=== PATIENT | male | born 1955 | race Caucasian/White ===

== ENCOUNTER 2018-03-10 19:30 | Outpatient (CLI) | payer BC | END 2018-03-10 19:31 | disposition home or self-care (01) | LOC: SLEEPLAB 19:30 | PROVIDERS: ATTEND Internal Medicine | DX: G47.33 Obstructive sleep apnea (adult) (pediatric) (principal); R06.83 Snoring; E11.9 Type 2 diabetes mellitus without complications; Z68.36 Body mass index [BMI] 36.0-36.9, adult | CPT/HCPCS: 95811 ==

== ENCOUNTER 2018-07-06 12:02 | Observation (INO) | payer BC ==
[~2018-07-06 12:02] MED LIST: Ondansetron PF 4 MG/2 ML Vial ONE; PHENYLEPHRINE-NS 100 MCG/ML 10 ML SYRINGE ONE; PROPOFOL 200 MG/20 ML VIAL ONE; Succinylcholine Chloride 20 MG/ML 10 ml SYRINGE FS ONE
[2018-07-06 12:44] LABS: #Basophils 0.1 thou/uL (0.0-0.2); #Eosinphils 0.4 thou/uL (0.0-0.7); #Lymphocytes 0.9 thou/uL (1.20-3.40); #Monocytes 1.1 thou/uL (0.11-0.59); #Neutrophils 9.8 thou/uL (1.40-6.50); %Basophils 0.8 % (0.0-1.0); %Eosinophils 3.5 % (0.0-10.0); %Lymphocytes 7.3 % (21.0-51.0); %Monocytes 9.2 % (0.0-10.0); %Neutrophils 79.3 % (42.0-75.0); Mean Corpuscular HGB CONC 33.5 g/dL (32.0-36.0); Mean Corpuscular Volume 95.6 fL (78.0-98.0); Mean Platelet Volume 9.7 fL (7.4-10.4); Platelet Count 182 thou/uL (130-400); RBC Distribution Width 13.4 % (11.5-14.5); Red Blood Cell (RBC) Count 3.44 mill/uL (4.70-6.10); White Blood Cell (WBC) Count 12.3 thou/uL (4.8-10.8)
[2018-07-06] MEDS ORDERED: ISOVUE-370 76%-LOCM 1 ML ONE (13:18)
[2018-07-06 13:19] LABS: ALT (SGPT) 97 U/L (8-55); AST (SGOT) 84 U/L (5-34); Albumin 3.2 g/dL (3.5-5.0); Alkaline Phosphatase 72 U/L (40-150); Anion Gap 20 mmol/L (10-20); BUN (Urea Nitrogen) 23 mg/dL (8.4-25.7); Bilirubin, Total 1.6 mg/dL (0.2-1.2); Calc. Creatinine Clearance 0 mL/min (70-130); Carbon Dioxide 19 mmol/L (22-29); Chloride 104 mmol/L (98-107); Estimated GFR-MDRD 60; Glucose 220 mg/dL (70-105); Lipase 48 U/L (8-78); Potassium 4.2 mmol/L (3.5-5.1); Protein, Total 6.2 g/dL (6.0-8.3); Sodium 139 mmol/L (136-145)
[2018-07-06 13:41] LABS: CKMB 2.7 ng/mL (0-6.6); Troponin I Less than 0.010 ng/mL (< 0.028)
--- NOTE | 2018-07-06 13:43 | RAD ---
TWO VIEWS CHEST: Comparison: 04-14-12 History: Throwing up blood, chest pain. FINDINGS: Two views of the chest shows a cardiomediastinal silhouette which is upper limits of normal in size. The patient is status post sternotomy. There is no evidence of consolidation, mass, or pleural effusi on. Degenerative changes are seen in the spine. IMPRESSION: No evidence of acute cardiopulmonary disease. POS: [facility]
--- NOTE | 2018-07-06 14:00 | CT ---
CT OF THE BRAIN WITHOUT CONTRAST: Date: 07/06/18 COMPARISON: None. HISTORY: Hemoptysis that began this morning. Sinus infection. Nosebleed. TECHNIQUE: Multiple contiguous axial images were obtained in a CT of the brain without contrast. FINDINGS: The brain is normal in morphology and attenuation without focal lesions or confluent areas of infarct ion. There is no evidence of hydrocephalus, intracranial hemorrhage, or extra-axial fluid collection. The calvarium and overlying soft tissues are unremarkable. The visualized paranasal sinuses and masto id air cells are well aerated. IMPRESSION: No evidence of acute intracranial abnormality. POS: [facility]
--- NOTE | 2018-07-06 14:08 | CT ---
CT ABDOMEN AND PELVIS WITH IV CONTRAST: Date: 07/06/18 HISTORY: Abdominal pain, hemoptysis. FINDINGS: The lung bases are clear. The liver, spleen, pancreas, adrenal glands, and kidneys are normal. No nita cified gallstones are seen. No free air, free fluid, or lymphadenopathy seen in the abdomen or pelvis . The small bowel loops are not abnormally dilated. There is stranding of the fat in the right lower qu adrant. A normal appearing appendix is present. There is prominence of the wall of the right colon an d cecum. There are vascular calcifications without evidence of aneurysmal dilatation of the abdominal aorta. T here are degenerative changes in the spine. IMPRESSION: 1. No evidence of appendicitis. 2. Inflammatory changes in the right lower quadrant, may be due to colitis. POS: [facility]
[2018-07-06] MEDS ORDERED: Oxymetazoline HCl 0.05% ( 15 ML ) ONE (14:53)
[2018-07-06] MEDS ORDERED: Acetaminophen 325 MG TAB PO PRN (15:28)
[2018-07-06] MEDS ORDERED: Dextrose 50% Abboject 50 ML SYRINGE SLOW IVP PRN (15:32)
[2018-07-06] MEDS ORDERED: Lorazepam 2 MG/ML VIAL SLOW IVP PRN ×2 (15:32)
[2018-07-06] MEDS ORDERED: Dextrose 5% in Water 1,000 ML IV PRN (15:32)
[2018-07-06] MEDS ORDERED: Fentanyl 100 MCG/2 ML VIAL ONE (16:51)
[2018-07-06] MEDS ORDERED: Phenylephrine HCL 10 MG/ML VIAL ONE (18:34)
[2018-07-06] MEDS ORDERED: PHENYLEPHRINE-NS 100 MCG/ML 10 ML SYRINGE ONE (18:34)
[2018-07-06] MEDS ORDERED: Octreotide Acetate 1,250 MCG in Sodium Chloride 0.9% 250 ML 250 ML IVPB SCH (18:45)
[2018-07-06] MEDS ORDERED: Promethazine HCl 25 MG/ML VIAL SLOW IVP PRN (18:51)
[2018-07-06] MEDS ORDERED: Promethazine HCl 25 MG/ML VIAL IM PRN (18:51)
[2018-07-06] MEDS ORDERED: Ondansetron HCl/PF 4 MG/2 ML Vial IVP PRN (18:51)
--- NOTE | 2018-07-06 19:30 | CON ---
DATE OF CONSULTATION: HISTORY OF PRESENT ILLNESS: The patient is a 62-year-old male, who is in his normal state of health until today at work. He felt weak somewhat and nauseated and he threw up. As far as vomitus, he had some blood. He did this the second time and then decided to go home. When he got home, he had more vomiting and this included some clots. He has not had prior upper GI bleeds. He denies any abdominal pain. He denies any recent weight loss. He takes aspirin and Plavix for coronary artery disease, but denies any NSAID use. PAST MEDICAL HISTORY: Significant for diabetes mellitus, coronary artery disease. MEDICATIONS: Include: 1. Metformin. 2. Aspirin. 3. Plavix. 4. Coreg. ALLERGIES: NO KNOWN ALLERGIES. SOCIAL HISTORY: Does not smoke. He drinks approximately 3 to 4 drinks, 4 out of 7 nights. FAMILY HISTORY: Negative for GI or liver disease. REVIEW OF SYSTEMS: CONSTITUTIONAL: No fever or chills. No weight loss. EYES: No blurred vision or double vision. ENT: No sore throat or ear aches. CARDIOVASCULAR: No chest pain or palpitation. PULMONARY: No shortness of breath, cough, or wheeze. GI: See above. : No hematuria or dysuria. MUSCULOSKELETAL: No joint pain or muscle weakness. SKIN: No rashes. NEUROLOGIC: No numbness or seizure activity. PHYSICAL EXAMINATION: GENERAL: Shows overweight male, in no acute distress. VITAL SIGNS: Pulse is 80, blood pressure 125/76, heart rate 92, respiratory rate is 20, and temperature is 97.0. HEENT: Unremarkable. NECK: Supple. CHEST: Clear. CARDIOVASCULAR: Regular rate and rhythm. ABDOMEN: Soft, nontender without organomegaly or masses. His bowel sounds are present, normoactive. RECTAL: Deferred. EXTREMITIES: Normal. NEUROLOGIC: Nonfocal. LABORATORY DATA: Shows a white blood cell count of 12.3, hemoglobin 11.0, and hematocrit of 32.9. Chemistries show CO2 of 19, glucose 220, total bilirubin 1.6, AST of 84, ALT of 97, albumin of 3.2. IMAGING DATA: Abdominal and pelvic CT shows inflammatory changes in the right lower quadrant, may be due to colitis. Chest x-ray shows no acute cardiopulmonary disease. Brain CT showed no intracranial abnormality. ASSESSMENT: 1. Upper gastrointestinal bleed. 2. Coronary artery disease, on aspirin and Plavix. 3. Elevated transaminases with elevated total bilirubin - the patient may have some underlying liver disease, secondary to nonalcoholic steatohepatitis and/or alcohol. 4. Diabetes mellitus. RECOMMENDATIONS: 1. Emergent EGD. 2. PPI. 3. Serial H and H. 4. Hold aspirin and Plavix. Job ID: [id number]
[2018-07-06 19:48] LABS: Hemoglobin 10.6 g/dL (14.0-18.0)
[2018-07-06] MEDS: Dextrose 5 % And 0.9 % NaCl 1,000 ML IV SCH (21:52)
[2018-07-06] MEDS: Pantoprazole 80 MG in Sodium Chloride 0.9% 100 ML IVP SCH (21:53)
--- NOTE | 2018-07-06 23:40 | HP ---
CHIEF COMPLAINT: Hematemesis. HISTORY OF PRESENT ILLNESS: The patient is a 62-year-old male with a past medical history of hypertension and diabetes, who presented to the hospital with complaints of hematemesis x1 day. The patient stated that last night he had about 5 drinks with his friends, which consisted of liquor and this morning when he woke up, he took all his medications, went to work, had 2 bouts of emesis at work. The patient then started feeling unwell and his coworker advised him to go home and get some rest. When the patient got home, the patient had another bout of hematemesis. At this time, the brought him to the hospital for further evaluation. The patient stated that his emesis appeared to be dark, clotty appearing. The patient denies taking any ibuprofen or any other NSAIDs besides the aspirin that is prescribed. The patient normally, in the morning before eating anything, takes all his medications, then gets to work, eats a granola bar and so on and so forth. However, today he did not even eat the granola bar since he did not feel well. The patient currently denies any dizziness or abdominal pain or any diarrhea. However, the patient states sometimes he does get diarrhea at times. Last colonoscopy and EGD were few years ago. EGD was done for possible hiatal hernia. The patient initially stated that he had hemoptysis at this time. There was a concern given his frequent signs of infection since he was put on recent medication by his ENT physician. The patient was evaluated by ENT Dr. Martines in the ER. There were no signs of postnasal epistaxis that would be the source of the patient's bleeding. PAST MEDICAL HISTORY: Hypertension, coronary artery disease, diabetes, and hypothyroidism. PAST SURGICAL HISTORY: He has had a bypass x4. SOCIAL HISTORY: The patient smokes cigar once a day. He drinks about 3 glasses of liquor, which is vodka and other hot liquor. The patient denies any recreational drug use. Just uses marijuana oil for his back pain. REVIEW OF SYSTEMS: All negative except for the ones mentioned above in the HPI. ALLERGIES: NO KNOWN DRUG ALLERGIES. MEDICATIONS: 1. The patient takes Synthroid, unknown dose. 2. The patient takes Victoza, unknown dose. 3. The patient takes metformin, unknown dose. 4. The patient takes aspirin 81 mg daily. 5. Benicar, unknown dose. The patient's is going to bring the list from home. FAMILY HISTORY: Denies any history of heart disease or cancer or any diabetes. PHYSICAL EXAMINATION: VITAL SIGNS: The patient's temperature is 98.8, blood pressure is 110/60, heart rate is 97, and he is 95% on room air. GENERAL: He is awake, alert, and oriented x3. Does not appear in any distress. CV: S1 and S2 present. No murmurs, rubs, or gallops. ABDOMEN: Soft. Bowel sounds are present x2. Mild pain on his right upper quadrant on palpation. No pain on his right or left lower quadrant area. LUNGS: Clear to auscultation. No rhonchi or wheezes noted. EXTREMITIES: No edema. Pedal pulses are present x2. NEUROVASCULAR: No focal deficits noted. HEENT: Normocephalic and atraumatic. Blood was noted in the back of his throat. SKIN: No cuts or lesions noted. LABORATORY DATA: Laboratory results are as of the following; WBCs of 12.3, hemoglobin of , hematocrit of 32.9, and his platelets are 182. BMP; sodium of 139, potassium of 4.2, BUN of 22, creatinine of 1.23. His AST was 84, ALT of 97, his total bilirubin was 1.6, glucose was 220. Troponin x1 was negative. Lipase was 48. He did have a CT abdomen and pelvis and a CT head. CT head was negative. CT abdomen and pelvis indicated mild right lower quadrant inflammatory changes consistent with colitis. No evidence of appendicitis. ASSESSMENT AND PLAN: The patient is a very pleasant 62-year-old man, who comes to the hospital for hematemesis. 1. Hematemesis. This could be most likely from a GI source, possibly either gastritis or ulcer versus possible varices. The patient does take medications on empty stomach daily. He also has been drinking. The patient does have a history of fatty liver according to him and continues to drink alcohol. We will put the patient n.p.o. right now with maybe some ice chips. Start some D5 normal saline at 100 mL an hour. Consult GI, also put him on a Protonix drip for now, and the patient does not take any NSAIDs, which could be causing the patient to have some bleeding. We will type and screen him. The patient's however, he had significant blood clots, which he did have a picture of while I was interviewing him in the room. 2. Elevated LFTs and bilirubin. May consider getting a right upper quadrant ultrasound. The patient does have a diagnosis of hepatic steatosis and continues to drink. I have advised him again alcohol use. We will continue to monitor. 3. Alcohol use. We will put the patient on FER protocol and also add some p.r.n. Ativan if needed. The patient has never had any withdrawals from alcohol. 4. Diabetes. We will check Accu-Cheks before meals and at bedtime. Also, we will put the patient on sliding scale and hold all his home medications for now. 5. Deep venous thrombosis prophylaxis. We will put the patient on the SCDs given his risk of bleeding and we will continue to monitor. Job ID: [id number]
[2018-07-07 00:39] VITALS: BMI 32.8
[2018-07-07 00:47] LABS: Hemoglobin 9.9 g/dL (14.0-18.0)
[2018-07-07] MEDS: Carvedilol 6.25 MG TAB PO SCH ×2 (06:26→20:44)
[2018-07-07] MEDS: Pantoprazole 80 MG in Sodium Chloride 0.9% 100 ML IVP SCH (06:26)
[2018-07-07 07:36] LABS: Hemoglobin 9.2 g/dL (14.0-18.0)
[2018-07-07] MEDS: Dextrose 5 % And 0.9 % NaCl 1,000 ML IV SCH ×2 (07:36→11:43)
[2018-07-07] MEDS ORDERED: hydrALAZINE 20 MG/ML VIAL SLOW IVP PRN (07:56)
[2018-07-07 07:58] LABS: Anion Gap 9 mmol/L (10-20); BUN (Urea Nitrogen) 31 mg/dL (8.4-25.7); Calc. Creatinine Clearance 108 mL/min (70-130); Carbon Dioxide 29 mmol/L (22-29); Chloride 106 mmol/L (98-107); Estimated GFR-MDRD 70; Glucose 240 mg/dL (70-105); Potassium 3.6 mmol/L (3.5-5.1); Sodium 140 mmol/L (136-145)
[2018-07-07 08:20] LABS: HBCM Index 0.08 S/CO (0-0.79); HBSAg Index 0.27 S/CO (0-0.99); Hep A IgM AB Non-Reactive (NonReactive); Hep A IgM S/CO 0.11 S/CO (0-0.79); Hep B Surf Ag Non-Reactive S/CO (NonReactive); Hep C IgG Ab Non-Reactive (NonReactive); Hep C Index 0.05 S/CO (0-0.79); Hepatitis B Core IgM Abs Non-Reactive (NonReactive)
--- NOTE | 2018-07-07 08:38 | OP ---
DATE OF PROCEDURE: 07/06/2018 PREOPERATIVE DIAGNOSIS: Upper gastrointestinal bleed. DESCRIPTION OF PROCEDURE: After informed consent was obtained, the patient was placed in the left lateral decubitus position. Anesthesia was administered by the Anesthesia Department. Forward-viewing endoscope was inserted into esophagus under direct visualization with ease and passed to the second portion of the duodenum with ease. Second portion of the duodenum and duodenal bulb were normal. No active bleeding sites were noted. The pylorus was normal. The antrum, body, fundus, and cardia was normal; however, this was obscured by a large amount of adherent of blood, but also by a large amount of clot in the stomach. This clot was eventually aspirated completely clear; however, the old adherent blood along the most of the gastric mucosa was not washed free and therefore complete visualization was not achieved. No active bleeding sites were noted. No bright red bleeding was noted. The patient had minimal grade 1 or less varices that had not red darryl signs or stigmata of recent hemorrhage. No gastric varices were appreciated. No portal hypertensive gastropathy was noted. No biopsies were obtained. ASSESSMENT: 1. Large amount of adherent blood and clot in the stomach precluding full visualization. 2. Grade 1 or less esophageal varices. RECOMMENDATIONS: 1. Relook in a.m. 2. Begin octreotide. 3. PPI. 4. Serial H and H. 5. Right upper quadrant ultrasound. 6. Hepatitis panel. 7. Alpha-fetoprotein. Job ID: [id number]
--- NOTE | 2018-07-07 08:49 | ULT ---
ABDOMINAL ULTRASOUND COMPLETE: Date: 07/07/18 HISTORY: 62-year-old male with history of abnormal liver function tests. Hematemesis. Weakness. COMPARISON: 07/06/18 CT. FINDINGS: Coarse liver echogenicity, evidence for fatty infiltration. No evidence for gallstones. Gallbladder w all 0.3 cm without evidence for pericholecystic fluid or abnormal wall thickening. Liver is enlarged. Common bile duct 0.4 cm. Pancreas mostly obscured. Visualized IVC and aorta unremarkable. Minimal sp lenomegaly. No renal hydronephrosis. No abnormal fluid collection. IMPRESSION: Minimal hepatosplenomegaly with some fatty changes in the liver. No ductal dilatation. No evidence fo r overt gallstones. POS: [facility]
[2018-07-07] MEDS ORDERED: PROPOFOL 200 MG/20 ML VIAL ONE (11:18)
[2018-07-07] MEDS: Insulin Glargine 5 UNITS in Pre-Filled Syringe 1 EACH SC SCH (12:19)
[2018-07-07 13:01] LABS: Hemoglobin 9.3 g/dL (14.0-18.0)
--- NOTE | 2018-07-07 15:47 | PDOC.PN ---
- Subjective Encounter Start Date: 07/07/18 Encounter Start Time: 09:00 Subjective: pt up in bed no complains - Objective Resuscitation Status - Order Detail: 07/06/18 15:28 Resuscitation Status Routine Resuscitation Status: FULL: Full Resuscitation Vital Signs & Weight: Vital Signs (12 hours) Temp Pulse Resp BP BP Pulse Ox 07/07/18 13:03 158/80 H 07/07/18 11:57 98 F 78 16 158/80 H 97 07/07/18 08:15 132/74 07/07/18 07:46 98.6 F 77 16 123/89 94 L 07/07/18 06:26 160/75 H 07/07/18 06:00 98.1 F 87 18 160/75 H 95 Weight Weight 229 lb 1 oz I&O: 07/06/18 07/07/18 07/08/18 06:59 06:59 06:59 Intake Total 480 Output Total 1300 Balance -820 Result Diagrams: 07/07/18 12:44 07/07/18 07:15 Additional Labs: Accuchecks 07/07/18 07/07/18 07/06/18 12:01 06:32 22:41 POC Glucose 192 H 271 H 237 H Phys Exam - Physical Examination Neck: no nodes, no JVD, supple, full ROM Respiratory: no wheezing, no rales, no rhonchi, wheezing present, clear to auscultation bilateral Cardiovascular: RRR, no significant murmur, no rub, gallop, irregular Gastrointestinal: soft, non-tender, no distention, positive bowel sounds Dx/Plan (1) Hematemesis Code(s): K92.0 - HEMATEMESIS Status: Acute (2) Alcohol abuse Code(s): F10.10 - ALCOHOL ABUSE, UNCOMPLICATED Status: Acute (3) HTN (hypertension) Code(s): I10 - ESSENTIAL (PRIMARY) HYPERTENSION Status: Acute - Plan will continue protonix drip and octreotide drip -: continue to monitor for alcohol withdrawal -: pt going for egd again this am, hh stable -: will restart bp meds since his bp is elevated * . Review of Systems - Review of Systems Respiratory: negative: Cough, Dry, Shortness of Breath, Hemoptysis, SOB with Excertion, Pleuritic Pain, Sputum, Wheezing Cardiovascular: negative: chest pain, palpitations, orthopnea, paroxysmal nocturnal dyspnea, edema, light headedness, other Gastrointestinal: negative: Nausea, Vomiting, Abdominal Pain, Diarrhea, Constipation, Melena, Hematochezia, Other - Medications/Allergies Allergies/Adverse Reactions: Allergies Allergy/AdvReac Type Severity Reaction Status Date / Time No Known Drug Allergies Allergy Verified 07/06/18 17:23 Medications: Current Medications Acetaminophen (Tylenol) 650 mg PO Q4H PRN PRN Reason: Headache/Fever/Mild Pain (1-3) Carvedilol (Coreg) 6.25 mg PO BID [facility] Last Admin: 07/07/18 06:26 Dose: 6.25 mg Dextrose/Water (Dextrose 50%) 25 gm SLOW IVP PRN PRN PRN Reason: Hypoglycemia Glucagon (Glucagon) 1 mg IM PRN PRN PRN Reason: Hypoglycemia Hydralazine HCl (Apresoline) 10 mg SLOW IVP Q4H PRN PRN Reason: Blood Pressure Dextrose/Sodium Chloride (D5 0.9% Ns) 1,000 mls @ 100 mls/hr IV .Q10H [facility] Last Admin: 07/07/18 07:36 Dose: 1,000 mls Dextrose/Water (D5w) 1,000 mls @ 0 mls/hr IV .Q0M PRN PRN Reason: Hypoglycemia Octreotide Acetate 1,250 mcg/ (Sodium Chloride) 251.25 mls @ 10.05 mls/hr IVPB INF [facility] Last Admin: 07/06/18 21:52 Dose: 251.25 mls Insulin Glargine 5 units/ (Miscellaneous Medication) 0.05 mls @ 0 mls/hr SC QAM [facility] Last Admin: 07/07/18 12:19 Dose: 0.05 mls Insulin Glargine 5 units/ (Miscellaneous Medication) 0.05 mls @ 0 mls/hr SC HS [facility] Insulin Human Lispro (Humalog) 0 units SC .MILD SLIDING SCALE PRN PRN Reason: Mild Correctional Scale Levothyroxine Sodium (Synthroid) 50 mcg PO 0600 [facility] Lorazepam (Ativan) 1 mg SLOW IVP Q6H PRN PRN Reason: Anxiety/Agitation Lorazepam (Ativan) 0.5 mg SLOW IVP Q4H PRN PRN Reason: Anxiety/Agitation Pantoprazole Sodium (Protonix) 40 mg PO DAILY [facility] Sodium Chloride (Flush - Normal Saline) 10 ml IVF Q12HR [facility] Last Admin: 07/07/18 12:45 Dose: Not Given Sodium Chloride (Flush - Normal Saline) 10 ml IVF PRN PRN PRN Reason: Saline Flush
[2018-07-07 18:11] LABS: Hemoglobin 9.7 g/dL (14.0-18.0)
[2018-07-07] MEDS: HumaLOG 300 UNITS/3 ML VIAL SC PRN (18:21)
[2018-07-07] MEDS ORDERED: Insulin Glargine 5 UNITS in Pre-Filled Syringe 1 EACH SC SCH (21:00)
[2018-07-08] MEDS ORDERED: Levothyroxine Sodium 50 MCG TAB PO SCH (06:00)
[2018-07-08] MEDS: Carvedilol 6.25 MG TAB PO SCH (09:23)
[2018-07-08] MEDS: Insulin Glargine 5 UNITS in Pre-Filled Syringe 1 EACH SC SCH (09:24)
[2018-07-08] MEDS: HumaLOG 300 UNITS/3 ML VIAL SC PRN (10:54)
[2018-07-08] MEDS ORDERED: Polyethylene Glycol 3350 17 GM Packet PO SCH (11:15)
[2018-07-08 12:10] VITALS: TEMP 97.7
[2018-07-08 14:57] VITALS: BP 157/78
--- NOTE | 2018-07-08 19:54 | EKG ---
Test Reason : HEMATEMESIS Blood Pressure : / mmHG Vent. Rate : 080 BPM Atrial Rate : 080 BPM P-R Int : 138 ms QRS Dur : 094 ms QT Int : 420 ms P-R-T Axes : 005 -38 -64 degrees QTc Int : 484 ms Normal sinus rhythm Left axis deviation Moderate voltage criteria for LVH, may be normal variant Prolonged QT Abnormal ECG Confirmed by GREGORY BROWER DO ([id number]), multimedia editor AMBER CABALLERO ([id number] on 07/08/2018 7:53:45 PM Referred By: SUMAN Confirmed By:GREGORY BROWER DO
--- NOTE | 2018-07-10 07:49 | DIS ---
DATE OF ADMISSION: 07/06/2018 DATE OF DISCHARGE: 07/08/2018 BIOINFORMATICS ENGINEER: Dr. Edouard Jacobs, Gastrointestinal Service. PROCEDURE: Upper gastrointestinal scoping. FINAL DIAGNOSES: 1. Upper gastrointestinal bleeding. 2. Grade 1 or less esophageal varices. 3. Portal hypertensive gastropathy. 4. Alcohol abuse. 5. Hypertension. HOSPITAL COURSE: The patient is a 62-year-old male with past medical history of hypertension and diabetes mellitus, who presented to the hospital with complaints of hematemesis x1 day. He stated that the night prior to this hospitalization, he had 5 drinks with his friends. Next morning, he woke up with 2 bouts of emesis. After his work, he had additional bout of hematemesis and at this time, the EMS was called and he was brought to the emergency room for further evaluation. He denied any NSAIDs use recently besides aspirin, which is prescribed by his PCP, Dr. Pate. He had some dizziness and abdominal discomfort. He was evaluated by ENT, Dr. Martines in the emergency room. There were no signs of post-nasal epistaxis or any other source of bleeding in the nasal area. He was evaluated high in the emergency room, his white count was 12.3, hemoglobin 11.0, hematocrit 32.9. His kidney function was within normal limits. Glucose was 220, total bilirubin was 1.6, AST 84, ALT 97, alkaline phosphatase 72. Next hemoglobin level was 10.6. The patient got admitted to the hospital, he was put on D5 normal saline at 100 mL/hour. GI consult was requested. Also, he was started on Protonix drip. His aspirin and Plavix were put on hold. The patient underwent upper GI scoping by Dr. Jacobs, who found a large amount of apparent blood and clot in the stomach and grade 1 or less esophageal varices. Because of above-mentioned problem, he was re-scoped the next day with better visualization of the anatomy. There was no any obvious source of bleeding. There was portal hypertensive gastropathy and grade 1 varices with stigmata of bleeding. The patient was on octreotide, which was weaned off. Clinically, he is doing well. His vital signs are blood pressure is 174/94. He was started on his ARB just now and his current blood pressure is down to 157/78, temperature is 97.7, pulse is 68, respiratory rate is 18, and O2 saturation is 94% on room air. He was seen, examined, and evaluated before he was discharged home. ACTIVITIES: As tolerated. DIET: Low salt, heart-healthy diet. DISCHARGE MEDICATIONS: Medications at the time of discharge; 1. Olmesartan which is Benicar 40 mg once a day. 2. Levothyroxine 50 mcg every morning. 3. Carvedilol 6.25 mg twice a day. 4. Victoza subcutaneous daily. 5. Metformin 1000 mg twice a day. 6. Pravastatin 80 mg q.h.s. 7. His Plavix and aspirin were stopped. DISCHARGE INSTRUCTIONS: The plan is to restart both of them approximately one week from the time of discharge when he is going to see his primary care physician, Dr. Pate in his office. He will continue his diabetic care with Accu-Cheks as before and regimen has not been changed. He is going to follow up with Dr. Mueller, his network support in 2 weeks. TIME SPENT: Time spent on this discharge is less than 30 minutes. Job ID: [id number]
--- NOTE | 2018-07-10 09:07 | OP ---
DATE OF PROCEDURE: 07/07/2018 PREOPERATIVE DIAGNOSIS: Upper GI bleed with incomplete visualization. DESCRIPTION OF PROCEDURE: After informed consent was obtained, the patient was placed in the left lateral decubitus position. Anesthesia was administered by the anesthesia department. Forward-viewing endoscope was inserted into esophagus under direct visualization with ease and passed to the second portion of the duodenum with ease. Second portion of the duodenum and duodenal bulb were normal. There was no blood in the upper GI tract. Pylorus, antrum, body, fundus, and cardia were normal, except for changes consistent with portal hypertensive gastropathy. Retroflexion in the stomach showed no gastric varices. The esophagus showed grade 1 esophageal varices without stigmata of recent hemorrhage. ASSESSMENT: 1. Portal hypertensive gastropathy. 2. Grade 1 esophageal varices without stigmata of bleeding. RECOMMENDATIONS: 1. Begin low-dose nadolol. 2. Wean off octreotide. 3. Resume diet. 4. Abstinence from alcohol. 5. If the patient is doing well tomorrow, he would be stable for discharge from GI standpoint. Job ID: [id number]
== END 2018-07-08 16:08 | disposition home or self-care (01) ==
LOC: ERS 12:02 → ERHOLD 15:37 → 2SW 19:35
PROVIDERS: ADMIT Internal Medicine; ATTEND Internal Medicine
PROC: 0DJ08ZZ Inspection of Upper Intestinal Tract, Via Natural or Artificial Opening Endoscopic (ICD-10-PCS; principal; 2018-07-06)
PROC: 0DJ08ZZ Inspection of Upper Intestinal Tract, Via Natural or Artificial Opening Endoscopic (ICD-10-PCS; 2018-07-07)
DX: K76.6 Portal hypertension (principal); K31.89 Other diseases of stomach and duodenum; I85.10 Secondary esophageal varices without bleeding; F10.10 Alcohol abuse, uncomplicated; K92.0 Hematemesis; E11.9 Type 2 diabetes mellitus without complications; I10 Essential (primary) hypertension; I25.10 Atherosclerotic heart disease of native coronary artery without angina pectoris; E03.9 Hypothyroidism, unspecified; F17.290 Nicotine dependence, other tobacco product, uncomplicated; R79.89 Other specified abnormal findings of blood chemistry; Z79.82 Long term (current) use of aspirin; Z79.84 Long term (current) use of oral hypoglycemic drugs; Z79.899 Other long term (current) drug therapy; Z79.02 Long term (current) use of antithrombotics/antiplatelets; Z95.1 Presence of aortocoronary bypass graft
CPT/HCPCS: 36415; 36416; 70450; 71046; 74177; 76700; 80048; 80053; 80074; 82105; 82550; 82553; 83690; 84484; 85014; 85018; 85025; 86850; 86900; 86901; 93005; 96365; 96366; 96368; 96374; 96375; C9113; G0378; J2354; J2370; J2405; J2704; J3010; J7050

== ENCOUNTER 2018-08-13 23:58 | Inpatient (IN) | payer BC ==
[2018-08-14 00:35] LABS: INR-International Normal Ratio 1.4; PTT 33.4 SEC (22.9-36.1); Prothrombin Time 17.6 SEC (12.0-14.7)
[2018-08-14 00:37] LABS: Hemoglobin 5.3 g/dL (14.0-18.0)
[2018-08-14 00:49] LABS: ALT (SGPT) 37 U/L (8-55); AST (SGOT) 48 U/L (5-34); Albumin 2.9 g/dL (3.5-5.0); Alkaline Phosphatase 56 U/L (40-150); Anion Gap 20 mmol/L (10-20); BUN (Urea Nitrogen) 47 mg/dL (8.4-25.7); Bilirubin, Total 0.6 mg/dL (0.2-1.2); Calc. Creatinine Clearance 0 mL/min (70-130); Calcium 8.5 mg/dL (7.8-10.44); Carbon Dioxide 14 mmol/L (22-29); Chloride 100 mmol/L (98-107); Estimated GFR-MDRD 71; Globulin 2.9 g/dL (2.4-3.5); Glucose 151 mg/dL (70-105); Potassium 4.1 mmol/L (3.5-5.1); Protein, Total 5.8 g/dL (6.0-8.3); Sodium 130 mmol/L (136-145)
[2018-08-14 00:54] LABS: Anisocytosis SLIGHT = 6-15 cells (100X) (0-5/hpf); Band 11 % (5-11); Lymphocytes 15 % (21-51); MDiff Complete? YES; Mean Corpuscular HGB CONC 32.6 g/dL (32.0-36.0); Mean Corpuscular Hemoglobin 27.3 pg (27.0-31.0); Mean Corpuscular Volume 83.6 fL (78.0-98.0); Mean Platelet Volume 9.8 fL (7.4-10.4); Monocytes 5 % (0-10); Neutrophil 69 % (42-75); PLT Morphology Comment Appears Adequate; Platelet Count 201 thou/uL (130-400); RBC Distribution Width 18.7 % (11.5-14.5); Red Blood Cell (RBC) Count 1.94 mill/uL (4.70-6.10); White Blood Cell (WBC) Count 12.8 thou/uL (4.8-10.8)
[2018-08-14] MEDS ORDERED: Sodium Chloride 0.9% 100 ML ONE (01:33)
[2018-08-14] MEDS ORDERED: Pantoprazole 40 MG VIAL ONE (01:33)
[2018-08-14] MEDS ORDERED: cefTRIAXone\\ROCEPHIN 1 GM VIAL ONE (01:33)
[2018-08-14] MEDS ORDERED: Tranexamic Acid 1,000 MG/10 ML VIAL ONE (01:33)
[2018-08-14] MEDS ORDERED: Octreotide Acetate 50 MCG/ML AMP ONE (01:33)
[2018-08-14] MEDS ORDERED: Octreotide Acetate 1,250 MCG in Sodium Chloride 0.9% 250 ML 250 ML IVPB SCH (01:45)
[2018-08-14] MEDS ORDERED: Ondansetron PF 4 MG/2 ML Vial IVP PRN (02:26)
[2018-08-14] MEDS ORDERED: Ondansetron ODT 4 MG TAB PO PRN (02:26)
[2018-08-14] MEDS ORDERED: HumaLOG 300 UNITS/3 ML VIAL SC PRN (02:26)
[2018-08-14] MEDS ORDERED: hydrALAZINE 20 MG/ML VIAL SLOW IVP PRN (02:26)
[2018-08-14] MEDS ORDERED: Acetaminophen 500 MG TAB PO PRN (02:26)
[2018-08-14] MEDS ORDERED: Dextrose 50% Abboject 50 ML SYRINGE SLOW IVP PRN (02:26)
[2018-08-14] MEDS ORDERED: Dextrose 5% in Water 1,000 ML IV PRN (02:26)
[2018-08-14] MEDS ORDERED: Pantoprazole 40 MG VIAL IVP SCH (02:30)
--- NOTE | 2018-08-14 04:53 | HP ---
PRIMARY CARE PROVIDER: Balbir Pate MD. CHIEF COMPLAINT: General weakness and blood in the stool. HISTORY OF PRESENT ILLNESS: This is a 62-year-old male who presents to [facility] Emergency Department complaining of 3-4-day history of blood in the stool as well as associated generalized weakness and persistent cough. The patient admits to increased sleep at home with decreased energy level and activities. His corroborates this story and states he has not been acting like himself over the last several days. The patient was recently admitted to [facility] 07/06 through 07/08/2018 after sustaining an upper GI bleed, discovered with esophageal varices and portal hypertensive gastropathy. The patient had previously been treated with outpatient prescriptions with Plavix and aspirin at which point the patient was taken off Plavix and continued on aspirin after discharge home. The patient states he was also placed on oral prednisone and was given intramuscular Solu-Medrol after complaints of bronchitis and persistent cough. The patient states these prescriptions were given after he was discharged from the hospital 07/08/2018. The patient noted decreased appetite, however, due to multiple cold and allergy medications, he did not have a bowel movement, until approximately 4-5 days prior to this evaluation noting black stools. The patient states the black stools persisted and the patient's noted that he looked pale and with sunken eyes. The patient denied any nausea, vomiting, or hematemesis. The patient denied any increased abdominal pain or dysuria. The patient denied any fever, trauma, or exposure history. In the emergency room, the patient underwent general evaluation including CBC assessment showing a hemoglobin of 5.3, previously noted 9.7 on 07/07/2018. The patient was typed and crossed and received 2 units of packed red blood cells in the emergency room in addition to octreotide and intravenous normal saline. PAST MEDICAL HISTORY: 1. Status post GI bleed secondary to esophageal varices and portal hypertensive gastropathy. 2. History of alcohol abuse, none since 06/2018. 3. Hypertension. 4. Chronic aspirin. 5. Hypothyroidism. 6. Diabetes mellitus type 2. 7. Seasonal allergies. 8. Coronary artery disease. PAST SURGICAL HISTORY: 1. Status post coronary artery bypass grafting x4 vessels. 2. Status post EGD showing grade 1 esophageal varices and portal hypertensive gastropathy. CURRENT MEDICATIONS: 1. Carvedilol 6.25 mg p.o. b.i.d. 2. Levothyroxine 50 mcg p.o. daily. 3. Victoza 1.8 subcutaneously daily. 4. Metformin 1000 mg p.o. b.i.d. 5. Olmesartan 40 mg p.o. daily. 6. Pravachol 80 mg p.o. at bedtime. 7. Enteric-coated aspirin 81 mg p.o. daily. ALLERGIES: NO KNOWN DRUG ALLERGIES. FAMILY HISTORY: No inheritable diseases per patient report. SOCIAL HISTORY: The patient is accompanied by his in the hospital. Smokes a cigar once a day. Previously used alcohol including vodka, none currently over the last 5 weeks. Uses marijuana oil for back pain. REVIEW OF SYSTEMS: CONSTITUTIONAL: Negative for weight loss or gain, ability to conduct usual activities. SKIN: Negative for rash, itching. EYES: Negative for double vision, pain. ENT/MOUTH: Negative for nose bleeding, neck stiffness, pain, tenderness. CARDIOVASCULAR: Negative for palpitations, dyspnea on exertion, orthopnea. RESPIRATORY: Negative for shortness of breath, wheezing, cough, hemoptysis, fever or night sweats. GASTROINTESTINAL: Negative for poor appetite, abdominal pain, heartburn, nausea, vomiting, constipation, or diarrhea. GENITOURINARY: Negative for urgency, frequency, dysuria, nocturia. MUSCULOSKELETAL: Negative for pain, swelling. NEUROLOGIC/PSYCHIATRIC: Negative for anxiety, depression. ALLERGY/IMMUNOLOGIC: Negative for skin rash, bleeding tendency. Otherwise, negative except as stated per HPI. PHYSICAL EXAMINATION: VITAL SIGNS: On admission, blood pressure 108/64, pulse 86, respiratory rate 18, temperature 99.3 degrees Fahrenheit, and O2 saturation 95% on room air. GENERAL APPEARANCE: This is a 62-year-old male, alert and oriented x3, pleasant, responsive, pale appearing, in mild distress. HEENT: Pupils are equal, round, reactive to light and accommodation. Extraocular muscles are intact. No scleral icterus. Pale conjunctivae bilaterally. Nares patent. OP is clear. Oral mucosa dry appearing. NECK: Supple. No cervical adenopathy. No thyromegaly. No carotid bruits. No JVD appreciated. Cervical spine with full active and passive range of motion. No meningeal signs noted. CHEST: Lungs are clear to auscultation bilaterally. CARDIOVASCULAR: S1, S2 without noted murmur, rub, or gallop. ABDOMEN: Obese, soft, nontender, and nondistended. Bowel sounds are positive in all four quadrants. There is no palpable mass. Landmarks are difficult to palpate due to patient's body habitus. EXTREMITIES: Warm and dry with fair turgor. Mild pitting edema to the mid shins bilaterally. Pulses are palpable distally at the dorsalis pedis, posterior tibial, and popliteal arteries bilaterally. Capillary refill less than 2 seconds. NEUROLOGIC: Cranial nerves 2 through 12 are grossly intact. No focal or lateralizing signs are appreciated. PERTINENT LAB AND X-RAY FINDINGS: Sodium 130, potassium 4.1, chloride 100, CO2 of 14, BUN 47, creatinine 1.06, estimated GFR 71, glucose 151, calcium 8.5. AST 48, ALT of 37, total bilirubin 0.6, albumin 2.9. CBC showed a white blood cell count of 12.8, hemoglobin 5.3, hematocrit 16.2, platelet count 201 with 69% neutrophils. PT 17.6, INR 1.4, PTT 33.4. EKG dated 08/13/2018 by my interpretation shows sinus mechanism with heart rates in the 70s. Normal R-wave progression noted in the precordial leads. No acute ST-T wave changes appreciated. ASSESSMENT/PLAN: 1. Acute gastrointestinal bleed. Suspect upper gastrointestinal source. History of esophageal varices and portal hypertensive gastropathy. We will continue octreotide infusion. Continue Protonix 40 mg IV q.12 hours. Consult GI Service in the a.m. for repeat endoscopy. Suspect the patient's presentation is due to recent exposure to prednisone and continuation of daily aspirin. 2. Acute blood loss anemia secondary to acute gastrointestinal bleed. See acute gastrointestinal bleed above for management options. 3. Status post 2 units of packed red blood cells. We will continue serial H and H monitoring and repeat CBC in the a.m. Avoid anticoagulation and NSAIDs. 4. Hypotension. Suspect secondary to hypovolemia. We will continue intravenous normal saline and transfuse 2 units of packed red blood cells. Hold all antihypertensive medications. 5. Hyponatremia. Suspect secondary to decreased oral intake. We will continue serial sodium monitoring. 6. Diabetes mellitus type 2. Insulin sliding scale for reflexive coverage. ADA diet when taking oral intake. Serial Accu-cheks before meals and at bedtime. 7. Prophylaxis. SCDs while in bed. Protonix 40 mg IV q.12 hours. 8. Code status is full. Surrogate medical decision maker is the patient's spouse. Job ID: [id number]
[2018-08-14 08:35] LABS: ALT (SGPT) 37 U/L (8-55); AST (SGOT) 49 U/L (5-34); Albumin 2.9 g/dL (3.5-5.0); Alkaline Phosphatase 54 U/L (40-150); Anion Gap 15 mmol/L (10-20); BUN (Urea Nitrogen) 46 mg/dL (8.4-25.7); Bilirubin, Total 0.8 mg/dL (0.2-1.2); Calc. Creatinine Clearance 0 mL/min (70-130); Calcium 8.4 mg/dL (7.8-10.44); Carbon Dioxide 18 mmol/L (22-29); Chloride 102 mmol/L (98-107); Estimated GFR-MDRD 69; Glucose 173 mg/dL (70-105); Potassium 4.2 mmol/L (3.5-5.1); Protein, Total 5.9 g/dL (6.0-8.3); Sodium 131 mmol/L (136-145)
[2018-08-14 09:19] LABS: Hemoglobin 6.5 g/dL (14.0-18.0); Mean Corpuscular HGB CONC 32.7 g/dL (32.0-36.0); Mean Corpuscular Hemoglobin 27.4 pg (27.0-31.0); Mean Corpuscular Volume 83.8 fL (78.0-98.0); Mean Platelet Volume 10.3 fL (7.4-10.4); Platelet Count 183 thou/uL (130-400); RBC Distribution Width 17.1 % (11.5-14.5); Red Blood Cell (RBC) Count 2.38 mill/uL (4.70-6.10); White Blood Cell (WBC) Count 11.5 thou/uL (4.8-10.8)
--- NOTE | 2018-08-14 09:21 | CON ---
DATE OF CONSULTATION: 08/14/2018 GASTROENTEROLOGY CONSULTATION CHIEF COMPLAINT: Blood in the stool. HISTORY OF PRESENT ILLNESS: Mr. Hernandez is a 62-year-old man, who was just admitted to the hospital at the end of June with hematemesis. He underwent upper endoscopy at that time that showed grade 1 varices and portal hypertensive gastropathy, but no focal bleeding source at the time. He was on Plavix and aspirin at that time and was discharged on aspirin alone. At that time, he had been drinking 3 to 4 drinks a few nights per week. Since then, he has stopped all alcohol use. After that, he developed cough and bronchitis and was treated with steroids. On Tuesday of this past week, he started passing black stools. He had a black stool every day on Tuesday, , Tuesday, Tuesday, and yesterday. He became extremely weak, pale, and fatigued, so he came to the emergency room for further care. He has had no nausea or vomiting. No diarrhea or constipation otherwise. No abdominal pain associated with this. No fever, chest pain, or shortness of breath. He still undergoing evaluation for his cough and antibiotics for that. PAST MEDICAL HISTORY: Coronary artery disease, diabetes mellitus type , hypothyroidism, hypertension, apparent cirrhosis of the liver with prior alcohol abuse, upper GI bleed end of June 2018 with varices and portal hypertensive gastropathy diagnosed at that time. PAST SURGICAL HISTORY: Coronary artery bypass graft. He had colonoscopy in 2010, which was negative except for diverticulosis. FAMILY HISTORY: Negative for GI malignancy. SOCIAL HISTORY: He smokes a cigar per day. He had been drinking vodka a few drinks a few nights per week, but has stopped completely in the last 5 weeks. He has used marijuana oil for back pain. ALLERGIES: NO KNOWN DRUG ALLERGIES. MEDICATIONS: Prior to admission: 1. Carvedilol. 2. Levothyroxine. 3. Victoza. 4. Metformin. 5. Olmesartan. 6. Pravachol. 7. Aspirin 81 mg daily. 8. He has been on prednisone on and off over the last month. REVIEW OF SYSTEMS: Negative x10 systems reviewed except as stated in history of present illness. PHYSICAL EXAMINATION: VITAL SIGNS: Pulse 78, blood pressure 108/58, and temperature 98.2. GENERAL: He is in no acute distress. He is pale. He is alert and oriented x3. HEENT: Eyes have no scleral icterus. Oropharynx is clear without lesions. No cervical or supraclavicular lymphadenopathy. LUNGS: Clear to auscultation bilaterally. HEART: Regular rate and rhythm without murmur. ABDOMEN: Soft, nontender, and nondistended. Bowel sounds are present. EXTREMITIES: Trace lower extremity edema. He has no asterixis on neurological exam. LABORATORY DATA: White blood cell count 12.8, hemoglobin 5.3 prior to 2 units transfusion, platelets 201. INR 1.4. Creatinine 1.06 with a BUN of 46, sodium 131. Bilirubin 0.8, AST 49, ALT 37, alkaline phosphatase 54, and albumin 2.9. Viral hepatitis serology is negative. IMPRESSION: 1. Upper gastrointestinal bleed, presenting with melena and severe anemia of acute blood loss. 2. Alcoholic cirrhosis. RECOMMENDATIONS: 1. Octreotide drip. 2. Pantoprazole IV. 3. Ceftriaxone for SBP prophylaxis. 4. Check post transfusion hemoglobin and give additional blood as indicated. Job ID: [id number]
[2018-08-14 09:26] LABS: Band 5 % (5-11); Eosinophils 6 % (0-10); Hypochromia SLIGHT = 6-15 cells (100X) (0-5/hpf); Lymphocytes 16 % (21-51); MDiff Complete? YES; Monocytes 10 % (0-10); Neutrophil 62 % (42-75); PLT Morphology Comment Appears Adequate; Polychromasia MODERATE = 3-4 cells (100X) (0-2/hpf); Reactive Lymphocytes 1 % (0-10)
[2018-08-14] MEDS ORDERED: Lidocaine 1% PF 5 ML VIAL ONE (14:36)
[2018-08-14] MEDS ORDERED: Succinylcholine Chloride 20 MG/ML 10 ml SYRINGE FS ONE (14:36)
[2018-08-14] MEDS ORDERED: PHENYLEPHRINE-NS 100 MCG/ML 10 ML SYRINGE ONE (14:36)
[2018-08-14] MEDS ORDERED: ePHEDrine/0.9% NaCl/PF SYRINGE 50 mg/10 ml ONE (14:36)
[2018-08-14] MEDS ORDERED: Ondansetron PF 4 MG/2 ML Vial ONE (14:36)
[2018-08-14] MEDS ORDERED: PROPOFOL 200 MG/20 ML VIAL ONE (14:36)
[2018-08-14] MEDS: Sodium Chloride 0.9% 1,000 ML IV SCH ×5 (15:09→20:47)
[2018-08-14] MEDS: Levothyroxine Sodium 50 MCG TAB PO SCH (15:09)
[2018-08-14] MEDS: Pantoprazole 40 MG VIAL IVP SCH ×3 (15:11→20:42)
--- NOTE | 2018-08-14 16:45 | OP ---
DATE OF PROCEDURE: 08/14/2018 PROCEDURE PERFORMED: Esophagogastroduodenoscopy with banding of esophageal varices. PREOPERATIVE DIAGNOSES: Gastrointestinal bleed and anemia of acute blood loss, requiring transfusion. This is a recurrent upper bleed. The patient has underlying cirrhosis. DESCRIPTION OF PROCEDURE: Informed consent was obtained from the patient. He was sedated with general anesthesia. The endoscope was advanced easily to the second portion of the duodenum, and retroflexion was removed from the stomach. Some large clots were suctioned with an endoscope and removed through the patient's mouth. There was old blood staining throughout the stomach and duodenum, but there was no active bleeding. There were 3 columns of small grade 1 varices that flattened completely. There was one grade 2 varix with a red bleb over it. Just below that, there was a white-based erosion above an esophageal ring. The ring was open. No significant gastric varices were seen. There was portal hypertensive gastropathy throughout the body and fundus. The stomach was otherwise unremarkable, and the pylorus and first and second portions of the duodenum were normal. The band was placed over the grade 2 varix with the red spot. Good hemostasis was confirmed. IMPRESSION: 1. Grade 2 varix with an overlying red bleb, which is believed to be the most likely bleeding source. This was banded x1. 2. Three columns small grade 1 varices that are flattened completely. 3. Mild distal esophageal ring with an erosion at the GE junction just above that. There are no stigmata of recent bleeding around the erosion. The varix was just above this erosion that was banded. 4. Portal hypertensive gastropathy. RECOMMENDATIONS: 1. Continue octreotide. 2. Continue proton pump inhibitor. 3. Monitor trend of the hemoglobin. 4. Advance to clear liquid diet today. 5. Followup EGD in a month to reassess varices. 6. Continue antibiotics for SBP prophylaxis. Job ID: [id number]
[2018-08-14 17:32] VITALS: BMI 33.7
[2018-08-15] MEDS ORDERED: Sterile Water 0 ML ONE (00:04)
[2018-08-15] MEDS: cefTRIAXone\\ROCEPHIN 1 GM in Sodium Chloride 0.9% 100 ML IVPB SCH (00:54)
[2018-08-15] MEDS: HumaLOG 300 UNITS/3 ML VIAL SC PRN ×5 (00:54→22:32)
[2018-08-15] MEDS: Levothyroxine Sodium 50 MCG TAB PO SCH (05:36)
[2018-08-15] MEDS: Sodium Chloride 0.9% 1,000 ML IV SCH (05:50)
[2018-08-15 06:14] LABS: Anion Gap 13 mmol/L (10-20); BUN (Urea Nitrogen) 20 mg/dL (8.4-25.7); Calc. Creatinine Clearance 148 mL/min (70-130); Calcium 7.9 mg/dL (7.8-10.44); Carbon Dioxide 19 mmol/L (22-29); Chloride 108 mmol/L (98-107); Estimated GFR-MDRD Greater than 90; Glucose 161 mg/dL (70-105); Potassium 3.8 mmol/L (3.5-5.1); Sodium 136 mmol/L (136-145)
[2018-08-15 06:25] LABS: Band 9 % (5-11); Eosinophils 2 % (0-10); Lymphocytes 10 % (21-51); MDiff Complete? YES; Mean Corpuscular Hemoglobin 27.1 pg (27.0-31.0); Mean Corpuscular Volume 84.6 fL (78.0-98.0); Monocytes 9 % (0-10); Neutrophil 70 % (42-75); Nucleated RBC 1 % (0); Platelet Count 160 thou/uL (130-400); Polychromasia SLIGHT = 2-3 cells (100X) (0-2/hpf); RBC Distribution Width 17.1 % (11.5-14.5); Red Blood Cell (RBC) Count 2.94 mill/uL (4.70-6.10); White Blood Cell (WBC) Count 9.3 thou/uL (4.8-10.8)
[2018-08-15] MEDS: Pantoprazole 40 MG VIAL IVP SCH ×2 (09:00→22:14)
--- NOTE | 2018-08-15 12:15 | CON ---
DATE OF CONSULTATION: 08/15/2018 TYPE OF CONSULTATION: Pulmonary critical care consultation. REASON FOR CONSULTATION: ICU stay and sleep apnea. HISTORY OF PRESENT ILLNESS: The patient is a 62-year-old male, who was admitted yesterday with upper gastrointestinal bleeding. He was found to have grade 3 varices, which required banding. Risk factor appears to be alcohol abuse in the past. He has had no further bleeding since being banded yesterday. The patient has a history of sleep apnea and is currently on CPAP at pressure of 12 at home. He is trying to get a new machine because his current one is not functional. PAST MEDICAL HISTORY: 1. Gastrointestinal bleeding secondary to esophageal varices and portal hypertensive gastropathy. 2. Hypertension. 3. SAFIA. 4. Hypothyroidism. 5. Diabetes mellitus type 2. 6. Coronary artery disease. PAST SURGICAL HISTORY: 1. Coronary artery bypass grafting surgery. 2. EGD with banding. MEDICATIONS: Prior to admission; 1. Carvedilol. 2. Levothyroxine. 3. Victoza. 4. Metformin. 5. Olmesartan. 6. Pravachol. 7. Enteric-coated aspirin 81 mg daily. ALLERGIES: NONE. FAMILY AND MEDICAL HISTORY: Unremarkable. SOCIAL HISTORY: The patient smokes one cigar a day. He is a banker. Uses marijuana oral for back pain. Previously drank vodka in the past, but quit about a month and a half ago. REVIEW OF SYSTEMS: A 12-point review of systems is otherwise negative. PHYSICAL EXAMINATION: VITAL SIGNS: Temperature 98.7, pulse 68, blood pressure 144/85, and O2 saturation 99%. GENERAL: He is awake, alert, in no distress. In general, he is a heavyset man, stands 5 feet 10 inches, weighs 235 pounds. BMI is 33.8. HEENT: Pupils are reactive. Sclerae anicteric. Oropharynx clear. NECK: No adenopathy or JVD. CHEST: Clear without wheezing or rhonchi. CARDIAC: S1 and S2, regular without murmur. ABDOMEN: Soft and nontender. Liver not palpable. EXTREMITIES: No clubbing, cyanosis, or edema. LABORATORY DATA: White blood cell count 9.3, hematocrit 24.9, and platelet count 160. INR 1.4. Sodium 136, potassium 3.8, chloride 108, CO2 of 19, BUN 20, creatinine 0.8, and glucose 161. ASSESSMENT: 1. Upper gastrointestinal bleeding secondary to varices-now banded. No evidence of rebleeding. 2. Obstructive sleep apnea. 3. Other medical problems as listed above. PLAN: The patient can be transferred to the floor. He will stay in the hospital as long as needed from a GI standpoint. His labs will need to be followed. His sleep apnea can be addressed on an outpatient basis. He needs a new machine. Job ID: [id number]
--- NOTE | 2018-08-15 20:03 | PRG ---
DATE OF SERVICE: 08/15/2018 SUBJECTIVE: Mr. Hernandez has had no overt bleeding today. He is tolerating a liquid diet well so far. He has no chest pain from his banding. OBJECTIVE: VITAL SIGNS: Temperature 97.5, pulse 79, and blood pressure 166/94. GENERAL: He is in no acute distress. He is alert and oriented x3. No asterixis on neurological exam. LUNGS: Clear to auscultation bilaterally. HEART: Regular rate and rhythm without murmur. ABDOMEN: Soft, nontender, and nondistended. Bowel sounds are present. EXTREMITIES: No lower extremity edema. LABORATORY DATA: Hemoglobin is 8.0 after 4 units transfusion. IMPRESSION: 1. Acute gastrointestinal bleed and anemia of acute blood loss secondary to esophageal varices. Status post banding of esophageal varix. 2. Alcoholic cirrhosis. RECOMMENDATIONS: 1. Complete 72 hours of octreotide drip. In the last 12 hours, it can be reduced to 25 mcg/hour. 2. Pantoprazole can be continued for now. 3. Continue SBP prophylaxis with ceftriaxone. Ideally, he would receive around 5 days of antibiotics for SBP prophylaxis. 4. Of note, Dr. Pate had called in antibiotics for him as an outpatient based on question of an infiltrate on an x-ray from last Tuesday. He is on ceftriaxone now. Dr. Simeon is following as well. 5. Advance to a soft diet in the morning. Job ID: [id number]
--- NOTE | 2018-08-15 22:47 | PDOC.PN ---
- Subjective Encounter Start Date: 08/15/18 Encounter Start Time: 19:00 Late entry note. No further bleeding. No hematemesis/melena. Tolerating clear liquid diet, anxious to advance diet. No abdominal pain. BP trending up. - Objective Resuscitation Status - Order Detail: 08/14/18 02:18 Resuscitation Status Routine Resuscitation Status: FULL: Full Resuscitation Vital Signs & Weight: Vital Signs (12 hours) Temp Pulse Ox 08/15/18 16:48 92 L 08/15/18 15:00 97.5 F L 08/15/18 11:00 97.9 F Weight Weight 235 lb 3.732 oz Most Recent Monitor Data Heart Rate from ECG 79 NIBP 166/94 NIBP BP-Mean 118 Respiration from ECG 14 SpO2 87 I&O: 08/14/18 08/15/18 08/16/18 06:59 06:59 06:59 Intake Total 3318 1869 Output Total 3475 450 Balance -157 1419 Result Diagrams: 08/15/18 05:48 08/15/18 05:48 Additional Labs: Accuchecks 08/15/18 08/15/18 08/15/18 17:11 11:42 10:40 POC Glucose 155 H 175 H 104 08/15/18 08/15/18 05:30 00:52 POC Glucose 171 H 227 H Phys Exam - Physical Examination Constitutional: NAD HEENT: PERRLA Neck: supple Respiratory: clear to auscultation bilateral Cardiovascular: RRR Gastrointestinal: soft, non-tender Musculoskeletal: no edema Neurological: non-focal, moves all 4 limbs Dx/Plan (1) GI bleed Code(s): K92.2 - GASTROINTESTINAL HEMORRHAGE, UNSPECIFIED Status: Acute Comment: Secondary to esophageal varices, s/p banding 08/14 (2) Hypothyroid Code(s): E03.9 - HYPOTHYROIDISM, UNSPECIFIED Status: Chronic (3) SAFIA (obstructive sleep apnea) Code(s): G47.33 - OBSTRUCTIVE SLEEP APNEA (ADULT) (PEDIATRIC) Status: Chronic Comment: Continue home CPAP (4) Type 2 diabetes mellitus Status: Acute Comment: Resume home medications (5) Coronary artery disease Code(s): I25.10 - ATHSCL HEART DISEASE OF [place] CORONARY ARTERY W/O ANG PCTRS Status: Acute Comment: Chronic, history CABG, no ASA for now (6) History of alcohol abuse Code(s): Z87.898 - PERSONAL HISTORY OF OTHER SPECIFIED CONDITIONS Status: Acute Comment: Remission since 06/2018 (7) Esophageal varices Code(s): I85.00 - ESOPHAGEAL VARICES WITHOUT BLEEDING Status: Acute (8) HTN (hypertension) Code(s): I10 - ESSENTIAL (PRIMARY) HYPERTENSION Status: Acute Comment: Resume home medications (9) Acute blood loss anemia Code(s): D62 - ACUTE POSTHEMORRHAGIC ANEMIA Status: Acute Comment: Check AM CBC - Plan * Please see plan as above. * Transfer orders on chart, home meds resumed
[2018-08-16] MEDS: cefTRIAXone\\ROCEPHIN 1 GM in Sodium Chloride 0.9% 100 ML IVPB SCH (02:20)
[2018-08-16 04:57] LABS: Anion Gap 11 mmol/L (10-20); BUN (Urea Nitrogen) 10 mg/dL (8.4-25.7); Calc. Creatinine Clearance 156 mL/min (70-130); Calcium 7.8 mg/dL (7.8-10.44); Carbon Dioxide 24 mmol/L (22-29); Chloride 107 mmol/L (98-107); Estimated GFR-MDRD Greater than 90; Glucose 163 mg/dL (70-105); Potassium 3.7 mmol/L (3.5-5.1); Sodium 138 mmol/L (136-145)
[2018-08-16 05:29] LABS: #Eosinphils 0.2 thou/uL (0.0-0.7); #Lymphocytes 1.1 thou/uL (1.20-3.40); #Monocytes 0.7 thou/uL (0.11-0.59); #Neutrophils 3.9 thou/uL (1.40-6.50); %Basophils 0.4 % (0.0-1.0); %Eosinophils 3.1 % (0.0-10.0); %Lymphocytes 18.7 % (21.0-51.0); %Monocytes 11.9 % (0.0-10.0); %Neutrophils 65.8 % (42.0-75.0); Hemoglobin 7.7 g/dL (14.0-18.0); MDiff Complete? YES; Mean Corpuscular HGB CONC 32.5 g/dL (32.0-36.0); Mean Corpuscular Hemoglobin 27.6 pg (27.0-31.0); Mean Corpuscular Volume 84.9 fL (78.0-98.0); Mean Platelet Volume 9.4 fL (7.4-10.4); Platelet Count 145 thou/uL (130-400); RBC Distribution Width 17.1 % (11.5-14.5); RBC Morphology Normal; Red Blood Cell (RBC) Count 2.77 mill/uL (4.70-6.10); White Blood Cell (WBC) Count 5.9 thou/uL (4.8-10.8)
[2018-08-16] MEDS: Levothyroxine Sodium 50 MCG TAB PO SCH (08:34)
--- NOTE | 2018-08-16 09:11 | PRG ---
DATE OF SERVICE: 08/16/2018 SUBJECTIVE: He is feeling well and wants to go home. OBJECTIVE: VITAL SIGNS: On exam, his temperature is 98.4, pulse 64, blood pressure 154/83, O2 saturation 94% on room air. HEENT: Unremarkable. NECK: No JVD. CHEST: Clear. CARDIAC: S1, S2. Regular. ABDOMEN: Soft. EXTREMITIES: No edema. LABORATORY DATA: Significant findings include elevated blood sugar of 163, hemoglobin of 7.7, hematocrit 23.6, and a platelet count of 145. ASSESSMENT: 1. Gastrointestinal bleeding. 2. Obstructive sleep apnea. PLAN: He brought the CPAP machine. I reviewed CPAP data. He is compliant with the machine 99% of the time. His current pressure is set at 10. He is receiving medical benefit for the device. His machine is quite ill, so I have written him a new prescription for ResMed CPAP set at 10 cm H2O with EPR and heated humidity. He will need to follow up in my office in 2 to 3 months with a download report from this machine. Job ID: [id number]
[2018-08-16] MEDS: Pantoprazole 40 MG VIAL IVP SCH ×2 (09:26→20:46)
[2018-08-16] MEDS: metFORMIN 500 MG TAB PO SCH ×2 (09:26→18:00)
[2018-08-16] MEDS: Carvedilol 6.25 MG TAB PO SCH ×2 (09:27→20:45)
[2018-08-16] MEDS: LIRAGLUTIDE SC SCH (09:29)
--- NOTE | 2018-08-16 14:24 | PRG ---
DATE OF SERVICE: 08/16/2018 SUBJECTIVE: Mr. Hernandez has had no further overt bleeding. He is tolerating a solid diet. No chest pain. No abdominal pain. OBJECTIVE: VITAL SIGNS: Temperature 98.4, blood pressure 146/96, pulse 70. GENERAL: He is in no acute distress. Alert and oriented x3. LUNGS: Clear to auscultation bilaterally. HEART: Regular rate and rhythm without murmur. ABDOMEN: Soft, nontender, nondistended. Bowel sounds are present. EXTREMITIES: 1+ pitting lower extremity edema. IMPRESSION: 1. Acute gastrointestinal bleed and anemia of acute blood loss secondary to esophageal varices status post banding of esophageal varix. 2. Alcoholic cirrhosis. RECOMMENDATIONS: 1. Reduce the octreotide to 12 mcg/hour and then discontinue. 2. Continue the ceftriaxone. He should be able to stop this after tomorrow. 3. Anticipate discharge home tomorrow. 4. Would give 1 unit transfusion today. Job ID: [id number]
--- NOTE | 2018-08-16 17:10 | PDOC.PN ---
- Subjective Encounter Start Date: 08/16/18 Encounter Start Time: 17:09 Subjective: feels much better. wants to eat regular food -: no N/V/D.no abd pain.still passing blackish stools - Objective Resuscitation Status - Order Detail: 08/14/18 02:18 Resuscitation Status Routine Resuscitation Status: FULL: Full Resuscitation MAR Reviewed: Yes Vital Signs & Weight: Vital Signs (12 hours) Pulse Ox 08/16/18 16:07 93 L 08/16/18 08:00 93 L Weight Weight 235 lb 3.732 oz Most Recent Monitor Data Heart Rate from ECG 72 NIBP 147/86 NIBP BP-Mean 106 Respiration from ECG 24 SpO2 90 I&O: 08/15/18 08/16/18 08/17/18 06:59 06:59 06:59 Intake Total 3318 2612 0 Output Total 3475 2325 Balance -157 287 0 Result Diagrams: 08/16/18 04:06 08/16/18 04:06 Additional Labs: Accuchecks 08/16/18 08/16/18 08/15/18 11:54 08:08 22:20 POC Glucose 201 H 172 H 212 H 08/15/18 17:11 POC Glucose 155 H Laboratory Tests 08/14/18 08/14/18 08/15/18 00:19 07:59 05:48 Hgb 5.3 L* 6.5 L 8.0 L 08/16/18 04:06 Hgb 7.7 L Phys Exam - Physical Examination Constitutional: NAD HEENT: PERRLA, moist MMs, sclera anicteric, oral pharynx no lesions Neck: no nodes, no JVD, supple, full ROM Respiratory: no wheezing, no rales, no rhonchi, clear to auscultation bilateral Cardiovascular: RRR, no significant murmur, no rub Gastrointestinal: soft, non-tender, no distention, positive bowel sounds Musculoskeletal: no edema, pulses present Neurological: non-focal, normal sensation, moves all 4 limbs Psychiatric: normal affect, A&O x 3 Dx/Plan (1) Acute blood loss anemia Code(s): D62 - ACUTE POSTHEMORRHAGIC ANEMIA Status: Acute Comment: Check AM CBC (2) GI bleed Code(s): K92.2 - GASTROINTESTINAL HEMORRHAGE, UNSPECIFIED Status: Acute Comment: Secondary to esophageal varices, s/p banding 08/14.on SBP prophylaxis.Octreotide drip and PPI IV (3) Esophageal varices Code(s): I85.00 - ESOPHAGEAL VARICES WITHOUT BLEEDING Status: Acute (4) History of alcohol abuse Code(s): Z87.898 - PERSONAL HISTORY OF OTHER SPECIFIED CONDITIONS Status: Chronic Comment: Remission since 06/2018 (5) Type 2 diabetes mellitus Status: Acute Comment: Resume home medications (6) SAFIA (obstructive sleep apnea) Code(s): G47.33 - OBSTRUCTIVE SLEEP APNEA (ADULT) (PEDIATRIC) Status: Chronic Comment: Continue home CPAP (7) HTN (hypertension) Code(s): I10 - ESSENTIAL (PRIMARY) HYPERTENSION Status: Chronic Comment: Resume home medications (8) Portal hypertensive gastropathy Code(s): K76.6 - PORTAL HYPERTENSION; K31.89 - OTHER DISEASES OF STOMACH AND DUODENUM Status: Chronic (9) Coronary artery disease Code(s): I25.10 - ATHSCL HEART DISEASE OF [place] CORONARY ARTERY W/O ANG PCTRS Status: Acute Comment: Chronic, history CABG, no ASA for now - Plan plan discussed w/ family, continue antibiotics, PT/OT, out of bed/ambulate, DVT proph w/SCDs 1 unit PRBC. recheck in am -: cont octreotide for total 72 hrs per GI.appreciate input -: breanna BEGUM in am. -: advance diet and montir. -: Ok to transfer to medical * . Review of Systems - Review of Systems Constitutional: weakness. negative: fever, chills, sweats, malaise, other Respiratory: negative: Cough, Dry, Shortness of Breath, Hemoptysis, SOB with Excertion, Pleuritic Pain, Sputum, Wheezing Cardiovascular: negative: chest pain, palpitations, orthopnea, paroxysmal nocturnal dyspnea, edema, light headedness, other Gastrointestinal: negative: Nausea, Vomiting, Abdominal Pain, Diarrhea, Constipation, Melena, Hematochezia, Other Genitourinary: negative: Dysuria, Frequency, Incontinence, Hematuria, Retention , Other Musculoskeletal: negative: Neck Pain, Shoulder Pain, Arm Pain, Back Pain, Hand Pain, Leg Pain, Foot Pain, Other Neurological: negative: Weakness, Numbness, Incoordination, Change in Speech, Confusion, Seizures, Other - Medications/Allergies Allergies/Adverse Reactions: Allergies Allergy/AdvReac Type Severity Reaction Status Date / Time No Known Drug Allergies Allergy Verified 07/06/18 17:23 Medications: Current Medications Acetaminophen (Tylenol) 1,000 mg PO Q6H PRN PRN Reason: Mild Pain (1-3) Atorvastatin Calcium (Lipitor) 20 mg PO HS [facility] Carvedilol (Coreg) 6.25 mg PO BID [facility] Last Admin: 08/16/18 09:27 Dose: 6.25 mg Dextrose/Water (Dextrose 50%) 25 gm SLOW IVP PRN PRN PRN Reason: Hypoglycemia Glucagon (Glucagon) 1 mg IM PRN PRN PRN Reason: Hypoglycemia Hydralazine HCl (Apresoline) 10 mg SLOW IVP Q4H PRN PRN Reason: SBP > 180 and HR < 70 Octreotide Acetate 1,250 mcg/ (Sodium Chloride) 251.25 mls @ 0 mls/hr IVPB INF [facility] Dextrose/Water (D5w) 1,000 mls @ 0 mls/hr IV .Q0M PRN PRN Reason: Hypoglycemia Ceftriaxone Sodium 1 gm/ (Sodium Chloride) 100 mls @ 200 mls/hr IVPB Q24HR [facility] Last Admin: 08/16/18 02:20 Dose: 100 mls Insulin Human Lispro (Humalog) 0 units SC .MILD SLIDING SCALE PRN PRN Reason: Mild Correctional Scale Last Admin: 08/15/18 22:32 Dose: 3 unit Insulin Human Lispro (Humalog) 0 units SC .BEDTIME SLIDING SC PRN PRN Reason: Bedtime Correctional Scale Levothyroxine Sodium (Synthroid) 50 mcg PO 0600 [facility] Last Admin: 08/16/18 08:34 Dose: 50 mcg Metformin HCl (Glucophage) 1,000 mg PO BID[facility] Last Admin: 08/16/18 09:26 Dose: 1,000 mg Olmesartan (Benicar) 40 mg PO DAILY [facility] Last Admin: 08/16/18 09:26 Dose: 40 mg Ondansetron HCl (Zofran Odt) 4 mg PO Q6H PRN PRN Reason: Nausea/Vomiting Ondansetron HCl (Zofran) 4 mg IVP Q6H PRN PRN Reason: Nausea/Vomiting Pantoprazole Sodium (Protonix) 40 mg IVP Q12HR [facility] Last Admin: 08/16/18 09:26 Dose: 40 mg Liraglutide [Victoza (3-Rey] 1.8 Ml) 0 each SC DAILY [facility] Last Admin: 08/16/18 09:29 Dose: 1 each Sodium Chloride (Flush - Normal Saline) 10 ml IV Q12HR [facility] Last Admin: 08/16/18 09:27 Dose: 10 ml
[2018-08-16] MEDS ORDERED: Atorvastatin Calcium 20 MG TAB PO SCH (21:00)
[2018-08-17] MEDS: cefTRIAXone\\ROCEPHIN 1 GM in Sodium Chloride 0.9% 100 ML IVPB SCH (00:09)
[2018-08-17] MEDS: Levothyroxine Sodium 50 MCG TAB PO SCH (05:21)
[2018-08-17 06:54] LABS: Hemoglobin 8.2 g/dL (14.0-18.0)
[2018-08-17 07:33] LABS: Anion Gap 11 mmol/L (10-20); BUN (Urea Nitrogen) 9 mg/dL (8.4-25.7); Calc. Creatinine Clearance 154 mL/min (70-130); Calcium 7.9 mg/dL (7.8-10.44); Carbon Dioxide 24 mmol/L (22-29); Chloride 106 mmol/L (98-107); Estimated GFR-MDRD Greater than 90; Glucose 160 mg/dL (70-105); Sodium 137 mmol/L (136-145)
[2018-08-17] MEDS: Carvedilol 6.25 MG TAB PO SCH (09:13)
[2018-08-17] MEDS: Pantoprazole 40 MG VIAL IVP SCH (09:13)
[2018-08-17] MEDS: metFORMIN 500 MG TAB PO SCH (09:13)
[2018-08-17] MEDS: LIRAGLUTIDE SC SCH (09:14)
[2018-08-17 14:46] VITALS: BP 153/88; TEMP 98.2
--- NOTE | 2018-08-18 03:39 | DIS ---
DATE OF ADMISSION: 08/14/2018 DATE OF DISCHARGE: 08/17/2018 CONDITION: At the time of discharge, stable and improved. DISCHARGE DISPOSITION: Home. DISCHARGE DIAGNOSES: 1. GI bleed secondary to esophageal varices status post banding, 08/14/2018. 2. Acute blood loss anemia secondary to #1. 3. History of alcohol abuse with resultant alcoholic cirrhosis, in remission since June 2018. 4. Esophageal varices. 5. Type 2 diabetes mellitus. 6. Obstructive sleep apnea, on home CPAP. 7. Essential hypertension. 8. History of portal hypertensive gastropathy. 9. History of coronary artery disease. DISCHARGE MEDICATIONS: Discharge medications remain the same as admission medications except for Protonix, which is new. He is instructed to take 40 mg daily until told otherwise by his catheterization laboratory technician. PRIMARY CARE PHYSICIAN: Dr. Balbir Pate. PROCEDURES DONE IN THE HOSPITAL: 1. EGD by Dr. Mueller on 08/14/2018, which showed grade 2 varix with an overlying red bleb, likely the bleeding source. This was banded x1 and three columns of small grade 1 varices that are flattened completely and mild distal esophageal ring with an erosion at the GE junction just above that and portal hypertensive gastropathy. CONSULTATIONS IN HOSPITAL: 1. Pulmonary Critical Care Medicine, Dr. Simeon. 2. Gastroenterology, Dr. Mueller. HISTORY OF PRESENTING ILLNESS: Mr. Hernandez is a pleasant 62-year-old male with known history of alcoholic cirrhosis and portal hypertensive gastropathy and coronary artery disease as well as diabetes, who presented to the emergency room with complaints of blood in his stools. He has not had any alcoholic drink since his last admission to the hospital in June 2018. He developed cough, bronchitis, and was recently treated with steroids and then shortly after that started passing black stools and became weak, pale, fatigued, so he came to the ER. In the emergency room, his hemoglobin was 5.3, and he was immediately started on PRBC transfusion. He was diagnosed as a possible upper GI bleed with melena and anemia of acute blood loss. He was started on octreotide drip, Protonix IV, and Rocephin for SBP prophylaxis and GI was consulted. He was admitted to [facility] initially. Please see admission history and physical for further details. HOSPITAL COURSE: He underwent EGD which showed a bleeding varix which was banded successfully. He was transfused a total of 6 units of packed RBC and his H and H stabilized at 8.2 as of this morning. He remained hemodynamically stable throughout the rest of his hospitalization. He was continued on Protonix IV as well as IV octreotide and IV Rocephin for SBP prophylaxis up until discharge. As of this morning, he has been cleared for discharge from Pulmonary Critical Care standpoint, as well as GI standpoint. He is hemodynamically stable and has had actually a normal BM this morning. His vital signs are stable and he will be discharged to closely follow up with his catheterization laboratory technician in the outpatient setting. I have seen and examined him prior to discharge. PHYSICAL EXAMINATION: VITAL SIGNS: This morning, temperature 98.3, pulse 70, respirations 16, saturating 98% on room air. Blood pressure 151/90. GENERAL: No acute distress. Awake, alert, and oriented x3. CHEST: Clear to auscultation bilaterally. HEART: Rate and rhythm are regular. ABDOMEN: Soft, nontender, nondistended. Obese. LABORATORY DATA: Discharge hemoglobin is 8.2, which was 5.3 upon presentation. Hematocrit of 25.9, otherwise unremarkable. DISCHARGE PLAN: Discharge plan was discussed with the patient who verbalized understanding. TIME SPENT: Total time spent in the discharge of this patient, 32 minutes. Job ID: [id number]
== END 2018-08-17 16:27 | disposition home or self-care (01) | DRG 432 ==
LOC: ERS 23:58 → ERHOLD 08-14 01:25 → CCU 08-14 14:06 → T4-A 08-16 17:46
PROVIDERS: ADMIT Family Medicine; ATTEND Family Medicine
PROC: 06L38CZ Occlusion of Esophageal Vein with Extraluminal Device, Via Natural or Artificial Opening Endoscopic (ICD-10-PCS; principal; 2018-08-14)
PROC: 30233N1 Transfusion of Nonautologous Red Blood Cells into Peripheral Vein, Percutaneous Approach (ICD-10-PCS; 2018-08-16)
DX: K70.30 Alcoholic cirrhosis of liver without ascites (principal); I85.11 Secondary esophageal varices with bleeding; D62 Acute posthemorrhagic anemia; K76.6 Portal hypertension; I85.00 Esophageal varices without bleeding; E87.1 Hypo-osmolality and hyponatremia; E11.9 Type 2 diabetes mellitus without complications; K44.9 Diaphragmatic hernia without obstruction or gangrene; E78.00 Pure hypercholesterolemia, unspecified; G47.33 Obstructive sleep apnea (adult) (pediatric); I10 Essential (primary) hypertension; K31.89 Other diseases of stomach and duodenum; E86.1 Hypovolemia; I25.10 Atherosclerotic heart disease of native coronary artery without angina pectoris; E03.9 Hypothyroidism, unspecified; F17.210 Nicotine dependence, cigarettes, uncomplicated; Z95.1 Presence of aortocoronary bypass graft; Z98.890 Other specified postprocedural states; Z79.899 Other long term (current) drug therapy; Z79.82 Long term (current) use of aspirin; Z79.84 Long term (current) use of oral hypoglycemic drugs
CPT/HCPCS: 36415; 36416; 36430; 80048; 80053; 85014; 85018; 85025; 85610; 85730; 86850; 86900; 86901; 93005; 94640; 94760; 96365; 96366; 96375; A4216; C9113; J0696; J2001; J2354; J2405; J2704; J7050; J7620; P9016

== ENCOUNTER 2018-09-15 07:00 | Day surgery (SDC) | payer BC ==
[2018-09-14 13:17] VITALS: BMI 30.4
--- NOTE | 2018-09-15 12:21 | OP ---
DATE OF PROCEDURE: 09/15/2018 PROCEDURE: Esophagogastroduodenoscopy. PREOPERATIVE DIAGNOSIS: Surveillance for esophageal varices. DESCRIPTION OF PROCEDURE: Informed consent was obtained from the patient. He was sedated with total intravenous anesthesia. A bite block was placed and the endoscope was advanced easily to the second portion of the duodenum and retroflexion was performed in the stomach. The esophagus had a 1-cm shallow ulcer in the distal esophagus at the site of the previous banding. There were no significant residual varices. The stomach had mild portal hypertensive gastropathy in the body and fundus. The pylorus and first and second portions of the duodenum were normal. IMPRESSION: 1. Ulcer at the previous banding site in the distal esophagus without significant residual varices. 2. Mild portal hypertensive gastropathy. RECOMMENDATIONS: Repeat EGD in 6 months for varices surveillance, which should be able to stretch that out to yearly after that. Job ID: [id number]
[2018-09-15] MEDS ORDERED: PROPOFOL 200 MG/20 ML VIAL ONE (15:49)
== END 2018-09-15 10:35 | disposition home or self-care (01) ==
LOC: SDC 07:00
PROVIDERS: ATTEND Internal Medicine Gastroenterology
PROC: 0DJ08ZZ Inspection of Upper Intestinal Tract, Via Natural or Artificial Opening Endoscopic (ICD-10-PCS; principal; 2018-09-15)
DX: K22.10 Ulcer of esophagus without bleeding (principal); K76.6 Portal hypertension; K31.89 Other diseases of stomach and duodenum; I85.10 Secondary esophageal varices without bleeding; K74.60 Unspecified cirrhosis of liver; E11.9 Type 2 diabetes mellitus without complications; I10 Essential (primary) hypertension; E03.9 Hypothyroidism, unspecified; E78.5 Hyperlipidemia, unspecified; Z79.84 Long term (current) use of oral hypoglycemic drugs; Z79.899 Other long term (current) drug therapy; Z95.1 Presence of aortocoronary bypass graft; Z98.890 Other specified postprocedural states
CPT/HCPCS: J2704

== ENCOUNTER 2018-12-05 08:47 | Day surgery (SDC) | payer BC ==
[2018-12-04 12:05] VITALS: BMI 28.5
--- NOTE | 2018-12-05 11:48 | OP ---
DATE OF PROCEDURE: 12/05/2018 PREPROCEDURE DIAGNOSES: 1. Cirrhosis. 2. History of variceal hemorrhage with previous banding. This is a followup banding for ablation. POSTPROCEDURE DIAGNOSES: 1. Three columns of grade 3 varices with red darryl signs noted in the distal esophagus, banded x4 with no complication. 2. Mild to moderate portal gastropathy more problem in the upper stomach. No evidence of gastric varices. No evidence of oozing or bleeding in the stomach. 3. Normal duodenum. 4. Otherwise normal esophagus. RECOMMENDATIONS: Continue present medications. Repeat EGD with banding in 3 weeks. ANESTHESIA: TIVA. PROCEDURE IN DETAIL: The patient was informed of the risks, benefits, and possible complications of endoscopy including perforation, reaction to medication, aspiration as well as causing variceal bleeding and the indication to ablate the varices to hopefully prevent further bleeding over time. He signed informed consent. He was brought to the endoscopy suite, where he was sedated up in gradual fashion. A bite block was placed inside the orifice. The endoscope was advanced to the esophagus, stomach, and second and third portions of the duodenum. There were three columns of grade 3 varices with some red darryl signs just above the GE junction. There was no stigmata to indicate recent bleeding. The stomach was entered and found to be normal in forward and retroflexed views, except for some mild portal gastropathy. There was no bleeding or heme staining of the mucosa. There was no evidence of gastric varices. The duodenal bulb was entered and found to be normal. Second and third portions were clear bile draining. The scope was then brought back to the esophagus and evaluated further and the scope was then removed and a 7 band ligator kit was placed, applied to the scope. The scope was reintroduced through the bite block into the esophagus carefully and at the distal esophagus, 4 bands were placed in the varices with ablation. No further varices could be seen for further banding. This procedure was discontinued. The scope was removed. The patient was brought to recovery room in stable condition. These findings were discussed with the patient, and I have called my nurse to have her call him tomorrow to schedule a followup EGD for about 3 to 4 weeks. Job ID: [id number]
[2018-12-05] MEDS ORDERED: PROPOFOL 200 MG/20 ML VIAL ONE (15:03)
[2018-12-05] MEDS ORDERED: Lidocaine 1% PF 5 ML VIAL ONE (15:03)
== END 2018-12-05 18:35 | disposition home or self-care (01) ==
LOC: SDC 08:47
PROVIDERS: ATTEND Internal Medicine Gastroenterology
PROC: 3E0G8TZ Introduction of Destructive Agent into Upper GI, Via Natural or Artificial Opening Endoscopic (ICD-10-PCS; principal; 2018-12-05)
DX: K70.30 Alcoholic cirrhosis of liver without ascites (principal); I85.10 Secondary esophageal varices without bleeding; K21.9 Gastro-esophageal reflux disease without esophagitis; D64.9 Anemia, unspecified; M19.90 Unspecified osteoarthritis, unspecified site; F32.9 Major depressive disorder, single episode, unspecified; E11.9 Type 2 diabetes mellitus without complications; E78.00 Pure hypercholesterolemia, unspecified; I10 Essential (primary) hypertension; E03.9 Hypothyroidism, unspecified; G47.30 Sleep apnea, unspecified; Z79.82 Long term (current) use of aspirin; Z79.899 Other long term (current) drug therapy; Z79.84 Long term (current) use of oral hypoglycemic drugs; Z87.891 Personal history of nicotine dependence; Z95.1 Presence of aortocoronary bypass graft
CPT/HCPCS: J2001; J2704

== ENCOUNTER 2019-07-25 10:22 | Outpatient (CLI) | payer BC ==
--- NOTE | 2019-07-25 14:32 | ULT ---
HEPATIC ULTRASOUND WITH GOETZ SCALE AND COLOR FLOW AND SPECTRAL DOPPLER IMAGING: Date: 07/25/19 HISTORY: Cirrhosis of the liver. FINDINGS: Liver demonstrates coarse echogenicity consistent with hepatocellular disease. No focal mass or intra hepatic ductal dilatation is seen. The spleen is enlarged, measuring 15.4 cm in length. The pancreas is obscured by bowel. The right kidney and gallbladder appear normal. No free fluid is seen. There is normal flow and spectral waveforms in the hepatic, portal, and splenic vasculature. The comm on duct measures 2.0 mm in diameter. IMPRESSION: 1. Findings suggestive of hepatocellular disease. 2. Splenomegaly. POS: [facility]
== END 2019-07-25 10:23 | disposition home or self-care (01) ==
LOC: ULT 10:22
PROVIDERS: ATTEND Internal Medicine Gastroenterology
DX: K74.60 Unspecified cirrhosis of liver (principal); R16.1 Splenomegaly, not elsewhere classified
CPT/HCPCS: 76705

== ENCOUNTER 2020-01-10 07:32 | Outpatient (CLI) | payer BC ==
[2020-01-10] MEDS ORDERED: Magnevist 469MG/ML 20 ML VIAL ONE (10:14)
--- NOTE | 2020-01-10 11:21 | MRI ---
MRI ABDOMEN WITH AND WITHOUT IV CONTRAST: Date: 01/10/2020 HISTORY: Unspecified cirrhosis of the liver. Esophageal varices. FINDINGS: The liver demonstrates no evidence of focal mass or intrahepatic biliary ductal dilatation. The splee n is enlarged, measuring 16.0 cm in length. The gallbladder, kidneys pancreas, and adrenal glands yanely ear normal. No free fluid or lymphadenopathy is seen in the abdomen. The abdominal aorta is of normal caliber. The bone marrow signal is normal. No portosplenic thrombosis is seen. The liver does not de finitely demonstrate significant signal loss on [id number] images in comparison to the spleen. IMPRESSION: 1. No evidence of hepatic mass. 2. Splenomegaly. POS: [facility]
== END 2020-01-10 07:33 | disposition home or self-care (01) ==
LOC: BICMRI 07:32
PROVIDERS: ATTEND Internal Medicine Gastroenterology
DX: Z12.11 Encounter for screening for malignant neoplasm of colon (principal); K74.60 Unspecified cirrhosis of liver; I85.00 Esophageal varices without bleeding; R16.1 Splenomegaly, not elsewhere classified
CPT/HCPCS: 74183; 82565

== ENCOUNTER 2020-06-11 13:05 | Inpatient (IN) | payer BC ==
[~2020-06-11 13:05] MED LIST changes: +Lidocaine 1% PF 5 ML VIAL ONE; -Ondansetron PF 4 MG/2 ML Vial ONE; +Rocuronium Bromide 10 MG/ML (10ML VIAL) ONE; -Succinylcholine Chloride 20 MG/ML 10 ml SYRINGE FS ONE
[2020-06-11] MEDS ORDERED: SUGAMMADEX SODIUM 500 MG/5 ML VIAL ONE (13:40)
[2020-06-11 13:45] LABS: Hemoglobin 9.7 g/dL (14.0-18.0); Mean Corpuscular HGB CONC 35.9 g/dL (32.0-36.0); Mean Corpuscular Volume 94.8 fL (78.0-98.0); Mean Platelet Volume 8.2 fL (7.4-10.4); Platelet Count 160 thou/uL (130-400); RBC Distribution Width 12.1 % (11.5-14.5); Red Blood Cell (RBC) Count 2.84 mill/uL (4.70-6.10)
[2020-06-11 14:05] LABS: Anion Gap 16 mmol/L (10-20); BUN (Urea Nitrogen) 65 mg/dL (8.4-25.7); Calc. Creatinine Clearance 0 mL/min (70-130); Calcium 9.8 mg/dL (7.8-10.44); Carbon Dioxide 18 mmol/L (23-31); Chloride 105 mmol/L (98-107); Estimated GFR-MDRD 60; Glucose 104 mg/dL (80-115); Potassium 5.3 mmol/L (3.5-5.1); Sodium 134 mmol/L (136-145)
--- NOTE | 2020-06-11 15:13 | CON ---
DATE OF CONSULTATION: 06/11/2020 REASON FOR CONSULTATION: Hematemesis, melena. HISTORY OF PRESENT ILLNESS: The patient is a 64-year-old male with past medical history of GERD, osteoarthritis depression, diabetes, hyperlipidemia, hypertension, hypothyroidism, obstructive sleep apnea, coronary artery disease status post CABG, and cirrhosis, complicated by esophageal varices, presenting with complaints of hematemesis/melena. Per chart review, the patient has a history of esophageal varices, for which he had undergone band ligation on multiple occasions, the most recent being in 01/2020, where an upper endoscopy on 01/17/2020 showed the presence of grade 2/3 distal esophageal varices, then underwent band ligation x3. Plans were to keep the patient on nonselective beta-brooke (carvedilol) with repeat upper endoscopy in 6 months for surveillance of these lesions. However, approximately 2 weeks ago, the patient started having increased amount of darker colored semi-solid stools, then slowly degraded to solid black stools for the last week. He added that he would have approximately 1 to 3 of these dark black semi-solid to liquid stools per day with no difficulty with defecation, but would be difficult to clean or wipe due to the sticky nature of the stool itself. This was also associated with a sensation of incomplete evacuation of the stools. However, this also culminated to increase the abdominal discomfort over the last 24 to 48 hours where the patient had one episode of vomiting approximately 48 hours ago, that consisted of "coffee monroy looking material." He had an additional episode this morning, which then prompted him to be seen at the [facility] outpatient setting for further evaluation. He was evaluated by Dr. Quinonez in the outpatient setting with a rectal exam at that time consistent with melenic type stools and recommendations to admit the patient to the hospital for expedited upper endoscopy. At this time, the patient denies any fevers, chills, further episodes or hematemesis, abdominal pain, dysphagia, odynophagia, constipation, hematochezia, or weight loss. REVIEW OF SYSTEMS: A 10-category review of systems was obtained with all responses negative except for the pertinent positives as listed in HPI. PAST MEDICAL HISTORY: As per HPI. PAST SURGICAL HISTORY: Coronary artery bypass graft. FAMILY HISTORY: Denies any GI malignancies. SOCIAL HISTORY: Denies any tobacco, alcohol, or illicit drug use. OUTPATIENT MEDICATIONS: Reviewed. ALLERGIES: NO KNOWN DRUG ALLERGIES. PHYSICAL EXAMINATION: Not currently available for review. LABORATORY DATA: CBC with a white blood cell count of 12, hemoglobin 9.7, hematocrit 26.9, and platelets 160. Chemistry with a sodium of 134, potassium 5.3, chloride 105, CO2 of 18, BUN 65, creatinine 1.22, and glucose 104. IMAGING DATA: No current GI imaging is available for review. ASSESSMENT AND PLAN: The patient is a 64-year-old male with past medical history of gastroesophageal reflux disease, osteoarthritis, depression, diabetes hyperlipidemia, hypertension, hypothyroidism, obstructive sleep apnea, coronary artery disease status post coronary artery bypass graft, and cirrhosis with bleeding esophageal varices status post band ligation on multiple occasions in the past, presenting with hematemesis and melena concerning for an upper GI bleed. 1. Upper gastrointestinal bleeding: The patient is presenting with a 2-week history of increasing darker colored stools that degraded into solid black stools over the last week that were semi-solid/liquid in consistency and difficult to wipe consistent with a melenic type picture. On review of the patient's labs today, he does have a mildly decreased hemoglobin and hematocrit, but seems to be fairly stable when compared to other hemoglobin and hematocrit that we have obtained over the years. However, he does have a significantly elevated BUN to creatinine ratio, consistent with a possible upper gastrointestinal bleed. At this time, the differential could include esophageal varix bleeding, esophagitis secondary to acid reflux, gastritis, portal hypertensive gastropathy, duodenitis, peptic ulcer disease, arteriovenous malformation, Dieulafoy lesion, or significantly less likely gastrointestinal neoplasm. Recommendations: a. Would continue to trend his hemoglobin and hematocrit and transfuse as necessary to maintain the hemoglobin and hematocrit of 7/21. b. Continue to monitor clinically for signs of active GI bleeding. c. Would continue n.p.o. status in preparation for EGD later today. d. Further recommendations to follow upper endoscopy. 2. Cirrhosis: The patient is presenting with a prior history of cirrhosis, that was believed to be secondary to a combination of chronic alcohol use and nonalcoholic fatty liver disease currently presenting with decompensated disease given the presence of esophageal varices that required band ligation in the past. Based on his current labs, his Child-[place] classification and MELD score cannot be calculated at this time and will be monitoring during the course of this hospitalization. MRI obtained on 01/10/2020 did not show any evidence of hepatoma or hepatocellular carcinoma, and his last colonoscopy was performed on 01/17/2020, with removal of two polyps, one in the cecum and one in the sigmoid colon, that were ultimately read as a hyperplastic cecal polyp and a hyperplastic polyp within the sigmoid colon with recommendations repeat colonoscopy in 5 years. Recommendations: a. Would continue to trend his LFTs with total bilirubin and INR to determine his current MELD score two we would continue to monitor clinically for signs of hepatic encephalopathy, which may be indicative of worsening hepatic function. We will continue to follow. Please call with any questions. Job ID: [id number]
[2020-06-11] MEDS ORDERED: cefTRIAXone\\ROCEPHIN 2 GM in Sodium Chloride 0.9% 100 ML IVPB SCH (16:00)
[2020-06-11 16:01] VITALS: BMI 28.1
[2020-06-11] MEDS ORDERED: Ondansetron ODT 4 MG TAB PO PRN (16:48)
[2020-06-11] MEDS ORDERED: Acetaminophen 650 MG Suppository PR PRN (16:48)
[2020-06-11] MEDS ORDERED: Acetaminophen 325 MG TAB PO PRN (16:48)
[2020-06-11] MEDS ORDERED: Ondansetron PF 4 MG/2 ML Vial IVP PRN (16:48)
[2020-06-11] MEDS: Pantoprazole 80 MG, Admixture Fee 1 EACH in Sodium Chloride 0.9% 100 ML IVPB SCH (17:01)
--- NOTE | 2020-06-11 19:10 | OP ---
DATE OF PROCEDURE: 06/11/2020 PROCEDURE PERFORMED: Esophagogastroduodenoscopy with control of hemorrhage. INDICATIONS FOR PROCEDURE: Hematemesis, melena, history of cirrhosis with bleeding esophageal varices. DESCRIPTION OF PROCEDURE: After the risks and benefits of the procedure were explained to the patient including risks of bleeding, infection, perforation, reactions to anesthesia, aspiration, and/or pain, informed consent was obtained. The patient was then taken to the endoscopy suite, where general anesthesia was administered followed by endotracheal tube intubation. Once the patient was sedated and intubated, he was maneuvered into the left lateral decubitus position, followed by introduction of the standard gastroscope with intubation of the esophagus, stomach, and the proximal small intestines with the findings listed below. The patient tolerated the procedure well with no immediate perioperative complications. Upon conclusion of the procedure, all equipment was removed from the patient and he was transferred to PACU in satisfactory condition. FINDINGS: Esophagus: Normal-appearing mucosa was seen in the proximal and mid esophagus. Small distal esophageal varices (grade 1) were seen near the gastroesophageal junction without any high-risk stigmata of active or recent bleeding. No intervention was taken on the esophageal varices given the low likelihood of bleeding. Otherwise, there was no evidence of erosions, ulcerations, mass lesions, or active/recent bleeding. Stomach: A large amount of retained dark black solid and liquid food and clot material was seen throughout the entire stomach. With aggressive irrigation and suctioning, lot of this material was removed. However, only approximately 90% of the gastric mucosa was adequately visualized with mucosa in the gastric cardia/fundus unable to be observed. Of the gastric mucosa seen, normal-appearing mucosa was seen at the gastroesophageal junction, gastric cardia, fundus, body, antrum. However, a 4 mm irregularly based ulceration was seen along the greater curvature near the body antral junction. It displayed blood clot surrounding the actual ulceration in addition to active oozing of blood from the ulcer itself. Subsequently, this ulceration was intervened upon with bipolar cauterization with good hemostasis achieved. Areas around the ulcer did start to ooze blood with increased friability of the mucosa with intervention of the bipolar cauterization, but these areas were also touched up with the bipolar probe again with good hemostasis achieved. A 2 mm nonbleeding arteriovenous malformation was also seen along the incisura without any evidence of adherent clot or active/recent bleeding. However, this was also intervened upon with bipolar cauterization given the possibility of recent bleeding, otherwise there was no evidence of mass lesions or polyps seen during the examination today. Duodenum: Normal-appearing mucosa was seen in both the duodenal bulb and second portion of the duodenum. There was no evidence of erosions, ulcerations, mass lesions, or active/recent bleeding. IMPRESSION: 1. Small (grade 1) nonbleeding esophageal varices seen in the distal esophagus. There was no evidence of gastric varices. 2. 4 mm actively oozing gastric ulcer along the greater curvature, now status post bipolar cauterization with good hemostasis achieved. 3. 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 4. Large amount of solid/semi-solid black material seen in the stomach limiting visualization primarily in the cardia fundus area. RECOMMENDATIONS: 1. Would admit the patient to the hospital under the Medicine Service for further management of his GI bleed and chronic conditions. 2. We will continue to trend his H and H and transfuse as necessary to maintain an H and H of 7/21. 3. Continue to monitor clinically for signs of active GI bleeding. 4. We will place the patient on a PPI drip for the next 24 hours, then potentially transfer to pantoprazole 40 mg IV b.i.d. if his H and H are stable. No further evidence of GI bleeding. 5. We will place the patient on a clear liquid diet for the time being. 6. If the patient exhibits continued drop in his H and H, would consider repeat upper endoscopy for further evaluation of the nonvisualized portions of the stomach today. 7. We will place the patient on antibiotic prophylaxis including ceftriaxone 2 g daily in light of GI bleeding in a cirrhotic patient. We will continue to follow. Please call with any questions. Job ID: [id number]
[2020-06-11] MEDS ORDERED: HumaLOG 300 UNITS/3 ML VIAL SC PRN ×2 (19:33)
[2020-06-11] MEDS ORDERED: Dextrose 5% in Water 1,000 ML IV PRN (19:33)
[2020-06-11] MEDS ORDERED: Dextrose 50% Abboject 50 ML SYRINGE SLOW IVP PRN (19:33)
[2020-06-11] MEDS ORDERED: Sodium Chloride 0.9% 1,000 ML IV SCH (19:45)
--- NOTE | 2020-06-11 20:39 | HP ---
TIME OF ASSESSMENT: 1600 hours. CHIEF COMPLAINT: Generalized weakness and coffee-ground emesis. HISTORY OF PRESENT ILLNESS: Mr. Hernandez is a 64-year-old gentleman who was a direct admit from the GI Clinic after being seen for complaints of weakness and coffee-ground emesis as well as melena. The patient has a known history of liver cirrhosis and associated esophageal varices from which he has developed hematemesis and melena in the past. The patient underwent band ligation x3 in January 2020. He was recommended repeat endoscopy in July 2020 for surveillance of the esophageal varices; however, last week, he developed melena. He also began to feel generally weak. He had been visiting his mother in [place] and called Dr. Quinonez who advised the patient to go to his local emergency room. The patient then developed coffee-ground emesis yesterday and states he vomited very small quantities, but became concerned due to the weakness. He opted to drive back down to [place] and arrived yesterday evening. He was seen by Dr. Quinonez in the clinic today, and a direct admission request was placed with us for observation following repeat endoscopy which was done today. He had EGD done by Dr. Schmidt who found a small grade 1 nonbleeding esophageal varices in the distal esophagus without any evidence of gastric varices. He was noted to have a 4-mm gastric ulcer that was actively oozing located in the greater curvature for which he underwent cauterization with good hemostasis achieved. He had a 2-mm AVM on the incisura, status post cauterization. There was a large amount of black material in the stomach, which apparently made it difficult to visualize the fundus. The patient was recommended to continue pantoprazole drip and prophylactic antibiotics with Rocephin. He will remain at least overnight for observation with monitoring of his H and H. Following the procedure, the patient states he feels well. Denies any abdominal pain and has not had any further vomiting. Denies any lightheadedness or dizziness. Does not feel weak at the moment. States he feels much better than when he 1st arrived. Currently, he is without any complaints. All other review of systems are negative. PAST MEDICAL HISTORY: 1. GERD. 2. Osteoarthritis. 3. Depression. 4. Diabetes. 5. Hyperlipidemia. 6. Hypertension. 7. Hypothyroidism. 8. Obstructive sleep apnea. 9. CAD. 10. Cirrhosis. 11. History of esophageal varices/bleeding as mentioned above. PAST SURGICAL HISTORY: 1. CABG. 2. Esophageal variceal banding x3 in January 2020. FAMILY HISTORY: Noncontributory. SOCIAL HISTORY: The patient states he smokes a cigar daily, but is planning to quit. He denies any alcohol consumption for the last 3 years, but did have a history of heavy alcohol abuse in the past. Denies any drug use. ALLERGIES: NO KNOWN DRUG ALLERGIES. CURRENT MEDICATIONS: 1. Aspirin 81 mg p.o. daily. 2. Coreg 6.25 mg p.o. daily. 3. Zyrtec 10 mg p.o. daily. 4. Ferrous sulfate 325 mg p.o. daily. 5. Levothyroxine 50 mcg p.o. daily. 6. Liraglutide 1.8 mL subcutaneous daily. 7. Magnesium oxide 400 mg p.o. twice daily. 8. Metformin 1000 mg p.o. twice daily. 9. Olmesartan 40 mg p.o. daily. 10. Omeprazole 10 mg p.o. daily. 11. Metamucil p.o. at bedtime. 12. Spironolactone 50 mg p.o. daily. 13. CoQ 10 one capsule p.o. b.i.d. PHYSICAL EXAMINATION: GENERAL: The patient appears well developed, well nourished, is in no acute distress. VITAL SIGNS: Temperature 98.3, pulse 79, respirations 18, O2 saturation 99% on room air, and blood pressure 148/84. HEENT: Normocephalic and atraumatic. Pupils are equal, round, reactive to light. Sclerae icterus. Oropharynx is clear. NECK: Supple. LUNGS: Clear to auscultation bilaterally without any wheezes, rales, or rhonchi. CARDIAC: Regular rate and rhythm. ABDOMEN: Soft, nontender, nondistended with bowel sounds present. No guarding or rigidity. No renal angle tenderness. EXTREMITIES: No lower extremity swelling or edema. NEUROLOGIC: Alert and oriented x3. SKIN: Warm and dry. LABORATORY DATA: White blood count 12, hemoglobin 9.7, hematocrit 26.9, and platelets 160. Sodium 134, potassium 5.3, BUN 65, creatinine 1.22, GFR 60, and glucose 104. IMPRESSION AND PLAN: Mr. Hernandez is a 64-year-old gentleman who was a direct admit from the GI Clinic with plans to observe him following endoscopic procedure that was done today. He is being followed for management of the following. 1. Upper gastrointestinal bleed. The patient is status post endoscopy, which confirmed a gastric ulcer that was actively oozing and cauterized. His other findings as mentioned above in the HPI. Per GI, we will continue omeprazole drip, clear liquid diet, and prophylactic antibiotics with Rocephin. We will continue to monitor H and H q.8 hours. Further recommendations as per GI Team. 2. Hypertension. Monitor blood pressure and resume antihypertensives including olmesartan starting tomorrow. Blood pressure seems to be under control at present. We will continue to monitor overnight. 3. Diabetes. Clear liquid diet as per GI. We will hold home medications and cover with sliding scale. Monitor glucose. 4. Coronary artery disease. Resume aspirin starting tomorrow and Coreg starting tonight. 5. Hypothyroidism. We will resume levothyroxine. 6. Cirrhosis. We will check LFTs with morning labs. 7. Hyperkalemia. Potassium 5.3. We will obtain the EKG. We will give IV fluids and recheck electrolytes. 8. Gastrointestinal prophylaxis. As mentioned, the patient will be on pantoprazole drip this evening. CODE STATUS: Full. Surrogate decision maker is his daughter, Lena Hernandez. The patient's case discussed with Dr. Wheatley who agrees upon care as described above. Job ID: [id number]
[2020-06-11] MEDS: Ferrous Sulfate 325 MG TAB PO SCH (20:49)
[2020-06-11] MEDS: Carvedilol 6.25 MG TAB PO SCH (20:49)
[2020-06-11] MEDS: Magnesium Oxide 400 MG TAB PO SCH (20:50)
[2020-06-11 22:01] LABS: Hemoglobin 7.3 g/dL (14.0-18.0)
[2020-06-12] MEDS: Pantoprazole 80 MG, Admixture Fee 1 EACH in Sodium Chloride 0.9% 100 ML IVPB SCH (00:45)
[2020-06-12 01:12] LABS: #Eosinphils 0.1 thou/uL (0.0-0.7); #Lymphocytes 1.3 thou/uL (1.20-3.40); #Monocytes 0.6 thou/uL (0.11-0.59); #Neutrophils 3.9 thou/uL (1.40-6.50); %Basophils 0.8 % (0.0-1.0); %Eosinophils 2.2 % (0.0-10.0); %Lymphocytes 22.3 % (21.0-51.0); %Monocytes 9.4 % (0.0-10.0); %Neutrophils 65.3 % (42.0-75.0); Hemoglobin 7.2 g/dL (14.0-18.0); Mean Corpuscular HGB CONC 34.8 g/dL (32.0-36.0); Mean Corpuscular Hemoglobin 33.1 pg (27.0-31.0); Mean Corpuscular Volume 95.2 fL (78.0-98.0); Mean Platelet Volume 7.7 fL (7.4-10.4); Platelet Count 95 thou/uL (130-400); Platelet Morphology Comment Appears Decreased; RBC Distribution Width 11.9 % (11.5-14.5); Red Blood Cell (RBC) Count 2.18 mill/uL (4.70-6.10)
[2020-06-12] MEDS ORDERED: Levothyroxine Sodium 50 MCG TAB PO SCH (06:00)
[2020-06-12 08:34] LABS: #Eosinphils 0.1 thou/uL (0.0-0.7); #Lymphocytes 1.1 thou/uL (1.20-3.40); #Monocytes 0.5 thou/uL (0.11-0.59); #Neutrophils 3.5 thou/uL (1.40-6.50); %Basophils 0.2 % (0.0-1.0); %Eosinophils 2.8 % (0.0-10.0); %Lymphocytes 20.8 % (21.0-51.0); %Neutrophils 66.1 % (42.0-75.0); Hemoglobin 8.3 g/dL (14.0-18.0); Mean Corpuscular HGB CONC 34.9 g/dL (32.0-36.0); Mean Corpuscular Hemoglobin 32.8 pg (27.0-31.0); Platelet Count 103 thou/uL (130-400); RBC Distribution Width 12.6 % (11.5-14.5); Red Blood Cell (RBC) Count 2.52 mill/uL (4.70-6.10); White Blood Cell (WBC) Count 5.2 thou/uL (4.8-10.8)
[2020-06-12 08:42] LABS: Anion Gap 11 mmol/L (10-20); BUN (Urea Nitrogen) 35 mg/dL (8.4-25.7); Calc. Creatinine Clearance 93 mL/min (70-130); Calcium 8.5 mg/dL (7.8-10.44); Carbon Dioxide 25 mmol/L (23-31); Chloride 108 mmol/L (98-107); Estimated GFR-MDRD 72; Glucose 92 mg/dL (80-115); Potassium 4.9 mmol/L (3.5-5.1); Sodium 139 mmol/L (136-145)
[2020-06-12] MEDS ORDERED: Loratadine 10 MG TAB PO SCH (09:00)
[2020-06-12] MEDS ORDERED: Losartan 25 MG TAB PO SCH (09:00)
[2020-06-12] MEDS ORDERED: Aspirin Chewable 81 MG TAB PO SCH (09:00)
[2020-06-12] MEDS ORDERED: Spironolactone 25 MG TAB PO SCH (09:00)
[2020-06-12] MEDS: Carvedilol 6.25 MG TAB PO SCH (10:00)
[2020-06-12] MEDS: Magnesium Oxide 400 MG TAB PO SCH (10:00)
[2020-06-12] MEDS ORDERED: Pantoprazole 40 MG GRANULES PACKET PO SCH (10:00)
[2020-06-12] MEDS: Ferrous Sulfate 325 MG TAB PO SCH (10:14)
--- NOTE | 2020-06-12 10:23 | PRG ---
DATE OF SERVICE: 06/12/2020 SUBJECTIVE: Mr. Hernandez has had no further vomiting. No melena. He had an upper endoscopy yesterday showing ulcer in the body of stomach that was cauterized. He feels well. He is tolerating full liquids. OBJECTIVE: VITAL SIGNS: Temperature is 98, pulse 73, blood pressure 118/65. ABDOMEN: Soft, nontender. LUNGS: Clear. HEART: Regular without clicks or murmurs. PSYCHIATRIC: He is not confused. LABORATORY DATA: Hemoglobin is 8.3 today. He received 1 unit of blood last night. It was 9.7 on admission. Sodium 139; potassium 4.9; BUN and creatinine 35 and 1.04, down from 65 and 1.22 yesterday. ASSESSMENT: 1. Alcoholic cirrhosis. 2. Prior history of varices, previous banding for variceal hemorrhage, up to date on banding with no significant varices seen on EGD yesterday. 3. Gastric ulcer, small, noted yesterday with oozing and bleeding, cauterized with no further bleeding now. 4. Post hemorrhagic anemia, improved, status post 1 unit of blood. RECOMMENDATIONS: 1. Change to p.o. PPI. 2. Advance diet. 3. Ambulate in the halls. 4. Stop IV fluids. If the patient shows no signs of bleeding and he has stable hemoglobin, can go home late this afternoon. Job ID: [id number]
--- NOTE | 2020-06-12 13:06 | PDOC.DS.DS ---
Provider - Provider Date of Admission: 06/11/20 15:19 Admitting Provider: Braxton Schmidt MD Primary Care Physician: Ruben Maurice MD Course - Hospital Course Hospital Course: [age]-year-old male history of alcoholic cirrhosis and prior history of varices with banding for variceal hemorrhage presented with hematemesis and melena. He had an EGD performed yesterday and it did not show any variceal hemorrhage. During this hospital stay EGD performed which showed nonbleeding esophageal varices in the distal esophagus and no evidence of gastric varices. He also had a 4 mm actively will oozing gastric ulcer along the greater curvature and a 2 mm AV malformation status post bipolar cauterization. Posthemorrhagic anemia that is improved with you 1 unit of packed RBC RBCs. Hemoglobin over 8 on the day of discharge. regarding his cirrhosis MRI performed in January 2020 did not show any evidence of hepatoma or hepatocellular carcinoma. His last colonoscopy in January 2020 status post 2 polypectomy 1 in the cecum and one in the sigmoid colon considered as hyperplastic cecal polyp and hyperplastic polyp within the sigmoid colon and recommendation to repeat the colonoscopy in 5 years. Patient has no acute complaints after the EGD and tolerating his p.o. intake. He would likely be discharged after his lunch. He will take his PPI twice a day for 1 month and then once daily. Encouraged him to follow with the GI clinic. PCP follow-up in 1 week. Discharge time took over 30 minutes. Resuscitation Status: 06/11/20 16:48 Resuscitation Status Routine Co-Sign Provider: Resuscitation Status: FULL: Full Resuscitation - Labs Lab Results: 06/12/20 08:06 06/12/20 08:06 Abnormal Lab Results - Last 48 hrs 06/11/20 13:29: Sodium 134 L, Potassium 5.3 H, Carbon Dioxide 18 L, BUN 65 H 06/11/20 13:29: WBC 12.0 H, RBC 2.84 L, Hgb 9.7 L, Hct 26.9 L, MCH 34.0 H 06/11/20 21:54: Hgb 7.3 L 06/12/20 00:43: RBC 2.18 L, Hgb 7.2 L, Hct 20.8 L, MCH 33.1 H, Plt Count 95 L, Monocytes # 0.6 H, Plt Morphology Comment Appears Decreased L 06/12/20 01:59: Crossmatch See Detail 06/12/20 08:06: Chloride 108 H, BUN 35 H 06/12/20 08:06: RBC 2.52 L, Hgb 8.3 L, Hct 23.7 L, MCH 32.8 H, Plt Count 103 L, Lymphocytes % 20.8 L, Lymphocytes # 1.1 L - Physical Exam Vitals: Vital Signs (12 hours) Temp Pulse Pulse Resp BP BP BP 06/12/20 12:13 127/78 06/12/20 11:23 98.5 F 89 18 95/62 06/12/20 10:00 118/65 06/12/20 07:34 06/12/20 07:15 98.2 F 73 16 118/65 06/12/20 06:00 98.0 F 80 18 102/64 06/12/20 04:00 98.0 F 77 18 98/65 06/12/20 03:17 98.5 F 80 18 110/67 Pulse Ox 06/12/20 12:13 06/12/20 11:23 97 06/12/20 10:00 06/12/20 07:34 98 06/12/20 07:15 98 06/12/20 06:00 97 06/12/20 04:00 97 06/12/20 03:17 95 Weight Admit Weight 196 lb 3.2 oz Weight 196 lb 3.382 oz Physical Exam: The patient was seen and examined on the day of discharge. Patient seen this morning. Talk to the GI briefly. Patient is doing well tolerating his meals today. He is quite anxious to go home. His hemoglobin is stable at 8.3. He did receive a unit of transfusion. Plan - Discharge Medications Prescriptions: Pantoprazole [Protonix] 40 mg PO BID 30 Days #60 tab Home Medications: Medication Instructions Recorded Confirmed Type Carvedilol 6.25 mg PO BID 07/07/18 06/11/20 History Levothyroxine Sodium 50 mcg PO QAM 07/07/18 06/11/20 History Liraglutide [Victoza 3-Rey] 1.8 ml SC DAILY 07/07/18 06/11/20 History Olmesartan Medoxomil [Benicar] 40 mg PO DAILY 07/07/18 06/11/20 History metFORMIN [Glucophage] 1,000 mg PO BID-WM 07/07/18 06/11/20 History Aspirin Chewable [Aspirin Chewable 1 tab PO DAILY 12/04/18 06/11/20 History Tablet] Cetirizine HCl [Zyrtec] 1 tab PO DAILY 12/04/18 06/11/20 History Cinnamon Bark [Cinnamon] 1 cap PO DAILY 12/04/18 06/11/20 History Ferrous Sulfate [Feosol] 1 tab PO BID 12/04/18 06/11/20 History Garlic Extract [Garlipure] 2 tab PO BID 12/04/18 06/11/20 History Magnesium Oxide [Magnesium] 1 cap PO BID 12/04/18 06/11/20 History Omeprazole Magnesium [Prilosec] 1 tab PO QAM 12/04/18 06/11/20 History Psyllium Husk/Aspartame [Metamucil 1 teaspoon PO HS 12/04/18 06/11/20 History Fiber Singles Packet] Saw/Vit E/Sod Sonia/Lyc/Beta/Pyg 1 tab PO DAILY 12/04/18 06/11/20 History [Prostate Health Caplet] Spironolactone 1 tab PO QAM 12/04/18 06/11/20 History Ubidecarenone [Co Q-10] 1 cap PO BID 12/04/18 06/11/20 History Vit D3-Vit K/Berberine/Hops 3,000 tab PO DAILY 12/04/18 06/11/20 History [Ostera Tablet] Pantoprazole [Protonix] 40 mg PO BID 30 Days #60 tab 06/12/20 Rx Allergies: No Known Drug Allergies Allergy (Verified 12/04/18 12:05) - Discharge Instructions Discharge Instructions:: Follow-up with PCP in 1 week Activity:: Activity as Tolerated Nourishment:: Regular Diet - Follow up Plan Referrals: Kenney Quinonez MD [Active] - Ruben Maurice MD [Primary Care Provider] - Disposition: HOME Quality - Care Measures CORE MEASURES:: N/A
[2020-06-12 14:48] LABS: Hemoglobin 8.8 g/dL (14.0-18.0)
[2020-06-12 15:19] VITALS: BP 94/67; TEMP 98.3
--- NOTE | 2020-06-13 16:03 | PQF ---
CLINICAL DOCUMENTATION CLARIFICATION FORM: Dear Dr. Abner Rmairez Date: 06-13-20 Please exercise your independent, professional judgment in responding to the clarification form. Clinical indicators are provided on the bottom of this form for your review Please check appropriate box(es): [ ] Acute posthemorrhagic blood loss anemia [ ] Chronic Anemia Blood [ ] Other diagnosis [ ] Unable to determine In addition, please specify: Present on Admission (POA): [ ] Yes [ ] No [ ] Unable to determine For continuity of documentation, please document condition throughout progress notes and discharge summary. Thank You. To be completed by CDI/Coding staff for physician review: CLINICAL INDICATORS - SIGNS / SYMPTOMS / LABS / RESULTS AND LOCATION IN EMR LABS: Hgb Hct 11-4 @ 1329 9.7 26.9 11-4 @ 2154 7.3 11-5 @ 0043 7.2 20.8 11-5 @ 0806 8.3 23.7 11-5 @ 1433 8.8 06-11 H&P (Sofie): *generalized weakness and coffee-ground emesis - melena *Upper GI Bleed DC Summary ([facility]): Posthemorrhagic anemia - EGD (Cristiano): *nonbleeding esophageal varices in distal esophagus and no evidence of gastric varices *4 mm actively oozing gastric ulcer along the greater curvature *2 mm AVM s/p bipolar cauterization RISK FACTORS / RESULTS AND LOCATION IN EMR 06-11 H&P (Sofie): GERD; CIRRHOSIS; HX esophageal varices/bleeding TREATMENTS / RESULTS AND LOCATION IN EMR - H&P (Sofie): gastrointestinal prophylaxisis pt will be on pantoprazole drip 06-11 EGD (Brayan): cauterization of gastric ulcer active bleeding 06-12 transfused 1 unit PRBC CDS Signature: Anastasiia Adler RN, CCDS Phone #: [phone] [email or web address] This is a permanent part of the Medical Record MTDD
--- NOTE | 2020-06-15 20:53 | EKG ---
Test Reason : Blood Pressure : / mmHG Vent. Rate : 084 BPM Atrial Rate : 084 BPM P-R Int : 142 ms QRS Dur : 106 ms QT Int : 406 ms P-R-T Axes : 041 -48 -58 degrees QTc Int : 479 ms Normal sinus rhythm Left anterior fascicular block Nonspecific ST and T wave abnormality Prolonged QT Abnormal ECG Confirmed by Melania TORRE ([id number]) on 06/15/2020 8:52:48 PM Referred By: CAROLINE GARZA Confirmed By:Melania TORRE
== END 2020-06-12 15:45 | disposition home or self-care (01) | DRG 378 ==
LOC: SDC 13:05 → T4-A 15:19
PROVIDERS: ADMIT Internal Medicine; ATTEND Internal Medicine
PROC: 0W3P8ZZ Control Bleeding in Gastrointestinal Tract, Via Natural or Artificial Opening Endoscopic (ICD-10-PCS; principal; 2020-06-11)
PROC: 30233N1 Transfusion of Nonautologous Red Blood Cells into Peripheral Vein, Percutaneous Approach (ICD-10-PCS; 2020-06-12)
DX: K55.21 Angiodysplasia of colon with hemorrhage (principal); I85.10 Secondary esophageal varices without bleeding; K25.4 Chronic or unspecified gastric ulcer with hemorrhage; M19.90 Unspecified osteoarthritis, unspecified site; E11.9 Type 2 diabetes mellitus without complications; K70.30 Alcoholic cirrhosis of liver without ascites; E78.5 Hyperlipidemia, unspecified; I10 Essential (primary) hypertension; G47.33 Obstructive sleep apnea (adult) (pediatric); I25.10 Atherosclerotic heart disease of native coronary artery without angina pectoris; K21.00 Gastro-esophageal reflux disease with esophagitis, without bleeding; F32.9 Major depressive disorder, single episode, unspecified; D50.0 Iron deficiency anemia secondary to blood loss (chronic); F17.210 Nicotine dependence, cigarettes, uncomplicated; Z95.1 Presence of aortocoronary bypass graft; Z79.82 Long term (current) use of aspirin; Z79.890 Hormone replacement therapy; Z79.84 Long term (current) use of oral hypoglycemic drugs; Z79.899 Other long term (current) drug therapy
CPT/HCPCS: 36415; 36416; 36430; 80048; 85025; 85027; 86850; 86900; 86901; 93005; 93010; C9113; J0696; J2704; J3490; P9016

== ENCOUNTER 2023-02-11 11:43 | Outpatient (CLI) | payer BC, MEDICARE | END 2023-02-11 11:44 | disposition home or self-care (01) | LOC: SCSMRI 11:43 | PROVIDERS: ATTEND Internal Medicine Gastroenterology | DX: I81 Portal vein thrombosis (principal); R16.1 Splenomegaly, not elsewhere classified | CPT/HCPCS: 74185; C8902 ==